=== PATIENT | male | born 1970 | race Caucasian/White ===

== ENCOUNTER 2016-09-26 19:28 | Inpatient (IN) | payer MEDICARE ==
[~2016-09-26] VITALS: Ht 188 cm; Wt 136.0 kg
[~2016-09-26 19:28] MED LIST: LITH300 PO; PANT20 PO; QUET200 PO; SERO200T PO; SERO400T PO
[2016-09-26 19:31] VITALS: BP 172/91; PULSE 89; RESP 16; TEMP 98.2; O2SAT 97
[2016-09-26] MEDS ORDERED: GABA600T PO (20:53)
[2016-09-26] MEDS ORDERED: HYDR8TAB PO (20:57)
[2016-09-26] MEDS ORDERED: LITH450T PO (20:57)
[2016-09-26] MEDS ORDERED: REST30CA PO (20:57)
[2016-09-26] MEDS ORDERED: QUET1TAB11 PO (20:57)
[2016-09-26] MEDS ORDERED: PANT20TA2 PO (20:57)
[2016-09-26] MEDS ORDERED: MORP1TAB26 PO (20:57)
--- NOTE | 2016-09-26 21:16 | PD ---
HPI Chief Complaint: Psychiatric Symptoms Time Seen by Provider: 21:08 Travel History International Travel<30 days: No Contact w/Intl Traveler<30days: No Traveled to known affect area: No History of Present Illness HPI This is a 46-year-old male with history of bipolar disorder, schizophrenia who presents with his friend and roommate voluntarily for psychiatric evaluation. For the past 5 days he has been hearing voices, feeling increasingly depressed and suicidal. He reports that the voices tell him to hurt himself and they tell him that he is worthless. He reports that today he was considering cutting himself with a knife and this prompted evaluation. He denies any toxic ingestions. He denies any drug or alcohol use. During review of systems he does mention that 2 days ago he had a sharp epigastric abdominal pain which lasted for about 2 hours and then resolved. Since then he has had some nausea and occasional vomiting, decreased appetite. He denies any recurrent abdominal pain. He denies any diarrhea, constipation, dysuria, flank pain, fevers, chills. No history of pancreatitis, gallbladder disease, gastritis. He reports that he has been taking his psychiatric medications as prescribed and he sees a psychiatrist locally, he does not recall the name. He has no other complaints at this time. PFSH Past Medical History Autoimmune Disease: No Bipolar Disorder: Yes Diminished Hearing: No Endocrine: No Gastrointestinal Disorders: No Genitourinary: No Hypertension: Yes Immune Disorder: No Implanted Vascular Access Dvce: No Musculoskeletal: Yes (HX OF LUMBAR SURGERY) Neurologic: No Psychiatric: Yes Reproductive: No Respiratory: No Schizophrenia: Yes Past Surgical History Abdominal Surgery: No Cardiac Surgery: No Ear Surgery: No Endocrine Surgery: No Eye Surgery: No Genitourinary Surgery: No Gynecologic Surgery: No Neurologic Surgery: No Oral Surgery: No Thoracic Surgery: No Other Surgery: Yes (SEE ED HISTORY AND PHYSICAL) Social History Alcohol Use: No Tobacco Use: Yes Substance Use: Yes (MARIJUANA) Allergies-Medications (Allergen,Severity, Reaction): Coded Allergies: No Known Allergies (Unverified , 09/26/16) Reported Meds & Prescriptions Reported Meds & Active Scripts Active Reported Morphine ER (Morphine Sulfate) 60 Mg Tab 60 Mg PO BID Quetiapine (Quetiapine Fumarate) 400 Mg Tab 400 Mg PO HS Hydromorphone (Hydromorphone HCl) 8 Mg Tab 8 Mg PO Q4-6H PRN Restoril (Temazepam) 30 Mg Cap 30 Mg PO HS PRN Pantoprazole (Pantoprazole Sodium) 20 Mg Tab 20 Mg PO DAILY [place] Carbonate ER ([place] Carbonate) 450 Mg Tab 450 Mg PO BID Gabapentin 600 Mg Tab 600 Mg PO Q6HR Review of Systems Except as stated in HPI: all other systems reviewed are Neg Physical Exam Narrative GENERAL: Well-developed well-nourished male in no acute distress answering questions appropriately SKIN: Warm and dry. HEAD: Atraumatic. Normocephalic. EYES: Pupils equal and round. No scleral icterus. No injection or drainage. ENT: No nasal bleeding or discharge. Mucous membranes pink and moist. NECK: Trachea midline. No JVD. CARDIOVASCULAR: Regular rate and rhythm. No murmur appreciated. RESPIRATORY: No accessory muscle use. Clear to auscultation. Breath sounds equal bilaterally. GASTROINTESTINAL: Abdomen soft, non-tender, nondistended. Hepatic and splenic margins not palpable. Negative Lacey's, no guarding. MUSCULOSKELETAL: No obvious deformities. No edema NEUROLOGICAL: Awake and alert. No obvious cranial nerve deficits. Motor grossly within normal limits. Normal speech. PSYCHIATRIC: Affect is somewhat flat, mood is somewhat depressed; insight and judgment normal. Data Data Last Documented VS Vital Signs Date Time Temp Pulse Resp B/P Pulse Ox O2 Delivery O2 Flow Rate FiO2 09/26/16 19:31 98.2 89 16 172/91 97 Room Air Orders Complete Blood Count With Diff (09/26/16 20:44) Comprehensive Metabolic Panel (09/26/16 20:44) Drug Screen, Random Urine (09/26/16 20:44) Alcohol (Ethanol) (09/26/16 20:44) Salicylates (Aspirin) (09/26/16 20:44) Tylenol (Acetaminophen) (09/26/16 20:44) Psych Screen (09/26/16 20:44) [place] (Li) (09/26/16 21:14) ^ Sitter (09/26/16 21:17) Ondansetron Inj (Zofran Inj) (09/26/16 21:30) Lipase (09/26/16 21:18) Pantoprazole Inj (Protonix Inj) (09/26/16 21:30) Sodium Chlor 0.9% 1000 Ml Inj (Ns 1000 M (09/26/16 21:18) Al-Mag Hy-Si 40-40-4 Mg/Ml Liq (Mag-Al P (09/26/16 21:30) Lidocaine 2% Viscous (Xylocaine 2% Visco (09/26/16 21:30) Potassium Chloride (Kcl) (09/26/16 23:15) Labs Laboratory Tests Test 09/26/16 09/26/16 21:00 21:40 White Blood Count 9.3 TH/MM3 Red Blood Count 5.30 MIL/MM3 Hemoglobin 14.6 GM/DL Hematocrit 42.3 % Mean Corpuscular Volume 79.8 FL Mean Corpuscular Hemoglobin 27.5 PG Mean Corpuscular Hemoglobin 34.5 % Concent Red Cell Distribution Width 15.5 % Platelet Count 239 TH/MM3 Mean Platelet Volume 7.5 FL Neutrophils (%) (Auto) 59.3 % Lymphocytes (%) (Auto) 29.8 % Monocytes (%) (Auto) 7.1 % Eosinophils (%) (Auto) 3.2 % Basophils (%) (Auto) 0.6 % Neutrophils # (Auto) 5.5 TH/MM3 Lymphocytes # (Auto) 2.8 TH/MM3 Monocytes # (Auto) 0.7 TH/MM3 Eosinophils # (Auto) 0.3 TH/MM3 Basophils # (Auto) 0.1 TH/MM3 CBC Comment DIFF FINAL Differential Comment Sodium Level 139 MEQ/L Potassium Level 3.3 MEQ/L Chloride Level 101 MEQ/L Carbon Dioxide Level 29.3 MEQ/L Anion Gap 9 MEQ/L Blood Urea Nitrogen 8 MG/DL Creatinine 0.75 MG/DL Estimat Glomerular Filtration 112 ML/MIN Rate Random Glucose 84 MG/DL Calcium Level 9.0 MG/DL Total Bilirubin 0.3 MG/DL Aspartate Amino Transf 12 U/L (AST/SGOT) Alanine Aminotransferase 27 U/L (ALT/SGPT) Alkaline Phosphatase 96 U/L Total Protein 8.2 GM/DL Albumin 3.5 GM/DL Salicylates Level 2.1 MG/DL Urine Opiates Screen NEG Acetaminophen Level LESS THAN 2.0 MCG/ML Urine Barbiturates Screen NEG Urine Amphetamines Screen NEG Urine Benzodiazepines Screen NEG Urine Cocaine Screen NEG Urine Cannabinoids Screen POS Ethyl Alcohol Level LESS THAN 3 MG/DL Lipase 62 U/L [place] Level 0.3 MEQ/L MDM Medical Decision Making Medical Screen Exam Complete: Yes Emergency Medical Condition: Yes Medical Record Reviewed: Yes Differential Diagnosis Schizophrenia, acute psychosis, substance induced mood disorder, medication noncompliance, adjustment reaction Narrative Course This is a 46-year-old male who is been having increasing depression, insomnia, auditory hallucinations, suicidal ideation the past 5 days. He notes a sharp epigastric abdominal pain 2 days ago which lasted for 2 hours and resolved. He notes nausea and vomiting since then. His abdomen is currently soft and nontender. Plan is for basic lab work, IV fluids, Zofran. He will be given a GI cocktail and Protonix. Lab work is been reviewed. Potassium mildly low at 3.3, he will be given oral potassium chloride supplementation. His lithium level was subtherapeutic. Drug screen is positive for cannabinoids. Mental health screening discussed with the patient. Psychiatric screen ordered. The patient is medically cleared for psychiatric disposition. A sitter has been ordered. Sixto Ureña Sep 26, 2016 21:16 Sixto Ureña Sep 26, 2016 21:16
[2016-09-26] MEDS ORDERED: SODIUM CHLOR 0.9% 1000 ML INJ 1,000 ML IV SCH (21:18)
[2016-09-26] MEDS ORDERED: ONDANSETRON HCL 4 MG/2 ML VIAL IV PUSH ONE (21:30)
[2016-09-26] MEDS ORDERED: PANTOPRAZOLE SODIUM 40 MG VIAL IVP ONE (21:30)
[2016-09-26] MEDS ORDERED: ALUMINUM/MAGNESIUM/SIMETH 30 ML CUP PO ONE (21:30)
[2016-09-26] MEDS ORDERED: LIDOCAINE VISCOUS 2% SOLN 15 ML UDC PO ONE (21:30)
[2016-09-26 21:34] LABS: AUTOMATED NEUTROPHIL # 5.5 TH/MM3 (1.8-7.7); BASOPHIL # 0.1 TH/MM3 (0-0.2); BASOPHIL % 0.6 % (0.0-2.0); EOSINOPHIL # 0.3 TH/MM3 (0-0.4); EOSINOPHIL % 3.2 % (0.0-4.0); HEMATOCRIT 42.3 % (39.0-51.0); HEMO FLAGS DIFF FINAL; LYMPH % 29.8 % (9.0-44.0); LYMPHOCYTE # 2.8 TH/MM3 (1.0-4.8); MEAN CELL VOLUME 79.8 FL (80.0-100.0); MEAN CORPUSCULAR HEMOGLOBIN 27.5 PG (27.0-34.0); MEAN CORPUSCULAR HGB CONC 34.5 % (32.0-36.0); MONO % 7.1 % (0.0-8.0); NEUT % 59.3 % (16.0-70.0); PLATELET COUNT 239 TH/MM3 (150-450); RED CELL DISTRIBUTION WIDTH 15.5 % (11.6-17.2); WHITE BLOOD COUNT 9.3 TH/MM3 (4.0-11.0)
[2016-09-26 21:41] LABS: AMPHETAMINE, URINE NEG (NEG); BARBITURATES, URINE NEG (NEG); COCAINE, URINE NEG (NEG)
[2016-09-26 21:50] LABS: ANION GAP 9 MEQ/L (5-15)
[2016-09-26 21:53] LABS: ALKALINE PHOSPHATASE 96 U/L (45-117); ALT (GPT) 27 U/L (12-78); AST (GOT) 12 U/L (15-37); BICARBONATE 29.3 MEQ/L (21.0-32.0); BLOOD UREA NITROGEN 8 MG/DL (7-18); CHLORIDE 101 MEQ/L (98-107); GLOMERULAR FILTRATION RATE 112 ML/MIN (>89); POTASSIUM 3.3 MEQ/L (3.5-5.1); SODIUM (NA) 139 MEQ/L (136-145); TOTAL BILIRUBIN ADULT 0.3 MG/DL (0.2-1.0)
[2016-09-26 22:38] LABS: ACETAMINOPHEN LESS THAN 2.0 MCG/ML (10.0-30.0)
[2016-09-26] MEDS ORDERED: POTASSIUM CHLORIDE 20 MEQ CONTROLLED RELEASE TAB PO ONE (23:15)
[2016-09-27] MEDS ORDERED: TEMAZEPAM 15 MG CAP PO ONE (01:00)
[2016-09-27 01:10] VITALS: BP 115/66; PULSE 66; RESP 16; O2SAT 99
[2016-09-27 06:28] VITALS: BP 131/60; PULSE 77; RESP 19; O2SAT 100
--- NOTE | 2016-09-27 10:10 | PD ---
History of Present Illness Chief Complaint: Psychiatric Symptoms Time Seen by Provider: 10:00 Travel History International Travel<30 Days: No Contact w/Intl Traveler<30days: No Known affected area: No Legal Status Legal Status: Voluntary History of Present Illness: History of Present Illness This is a 46-year-old male with history of bipolar disorder, cannabis abuse and mixed personality disorder who presents with his friend and roommate voluntarily for psychiatric evaluation. As per ed documentation which is included he reports that " for the past 5 days he has been hearing voices, feeling increasingly depressed and suicidal. He reports that the voices tell him to hurt himself and they tell him that he is worthless. He reports that today he was considering cutting himself with a knife and this prompted evaluation. He reports that he has been taking his psychiatric medications as prescribed and he sees a psychiatrist locally, he does not recall the name. His Li level is subtherapeutic at 0.3 therefore it is highly unlikely that he has been compliant with his medication. Patient presents with positive toxicology for cannabinoids but states ' that is not a drug and everyone smokes it". Patient was monitored in J pod overnight and presented no behavioral concerns and no suicidality until discharge options and plans were discussed. Patient is alert and oriented. Speech is clear and logical. He endorses auditory command type hallucinations that tell him to kill himself. he does not appear to be internally stimulated and his presentation is unusual and appears " acted" at times. he awaits for staff to be observing him and then responds and looks around. He reports feeling depressed and that " I have not eaten in 5 days or had anything to drink". he then corrects himself and states " I have only started eating here". There is no reported precipitant to increase in symptoms reported. He is unable to report who he sees at [facility] for medication. Overall he is very vague . he also asks several times " I'm I going to be discharged, can I go?". It was determined that he was to be discharged and shortly after that he was observed trying to tie his sheet around his neck in front of staff. He also was attempting to bite his tongue while demanding to be discharged. Patient is clearly manipulative and I don't believe that he is experiencing the degree of psychosis that he is portraying. Clearly manipulative behavior but nonetheless he will act out in a way as to obtain his intended purpose. Out of abundance of caution I will recommend inpatient psychiatric observation. As per record review he has presented similar behaviors during previous admissions to [facility]. PFSH Past Medical History Autoimmune Disease: No Bipolar Disorder: Yes Diminished Hearing: No Endocrine: No Gastrointestinal Disorders: No Genitourinary: No Hypertension: Yes Immune Disorder: No Implanted Vascular Access Dvce: No Musculoskeletal: Yes (HX OF LUMBAR SURGERY) Neurologic: No Psychiatric: Yes Reproductive: No Respiratory: No Schizophrenia: Yes Past Surgical History Abdominal Surgery: No Cardiac Surgery: No Ear Surgery: No Endocrine Surgery: No Eye Surgery: No Genitourinary Surgery: No Gynecologic Surgery: No Neurologic Surgery: No Oral Surgery: No Thoracic Surgery: No Other Surgery: Yes (SEE ED HISTORY AND PHYSICAL) Psychiatric History Psychiatric History Hx Psychiatric Treatment: HX OF BI-POLAR DISORDER AND SCHIZOPHRENIA History of Inpatient Treatment: Yes (Last admission at [facility] on Apr 2016 under the care of Dr White. ) Guns or firearms in home: No Social History Born in [place]. Div x 2. Has 2 adult children. On disability. Hx Alcohol Use: No Hx Tobacco Use: Yes Hx Substance Use: Yes (MARIJUANA) Substance Use Type: Marijuana (positive toxicology) Hx of Substance Use Treatment: No Family Psychiatric History Reports positive for schizophrenia Allergies-Medications (Allergen,Severity, Reaction): Coded Allergies: No Known Allergies (Unverified , 09/26/16) Reported Meds & Prescriptions Reported Meds & Active Scripts Active Reported Morphine ER (Morphine Sulfate) 60 Mg Tab 60 Mg PO BID Quetiapine (Quetiapine Fumarate) 400 Mg Tab 400 Mg PO HS Hydromorphone (Hydromorphone HCl) 8 Mg Tab 8 Mg PO Q4-6H PRN Restoril (Temazepam) 30 Mg Cap 30 Mg PO HS PRN Pantoprazole (Pantoprazole Sodium) 20 Mg Tab 20 Mg PO DAILY [place] Carbonate ER ([place] Carbonate) 450 Mg Tab 450 Mg PO BID Gabapentin 600 Mg Tab 600 Mg PO Q6HR Review of Systems Constitutional: COMPLAINS OF: Change in appetite Endocrine: DENIES: Heat/cold intolerance, Polydipsia, Polyuria, Polyphagia Eyes: DENIES: Blurred vision, Diplopia, Eye inflammation, Eye pain, Vision loss , Photosensitivity, Double Vision Ears, nose, mouth, throat: DENIES: Tinnitus, Hearing loss, Vertigo, Nasal discharge, Oral lesions, Throat pain, Hoarseness, Ear Pain, Running Nose, Epistaxis, Sinus Pain, Toothache, Odynophagia Respiratory: DENIES: Apneas, Cough, Snoring, Wheezing, Hemoptysis, Sputum production, Shortness of breath Cardiovascular: DENIES: Chest pain, Palpitations, Syncope, Dyspnea on Exertion , PND, Lower Extremity Edema, Orthopnea, Claudication Gastrointestinal: DENIES: Abdominal pain, Black stools, Bloody stools, Constipation, Diarrhea, Nausea, Vomiting, Difficulty Swallowing, Anorexia Genitourinary: DENIES: Sexual dysfunction, Urinary frequency, Urinary incontinence, Urgency, Hematuria, Dysuria, Nocturia, Penile Discharge, Testicular Pain, Testicular Swelling Integumentary: DENIES: Abnormal pigmentation, Nail changes, Pruritus, Rash Hematologic/lymphatic: DENIES: Bruising, Lymphadenopathy Immunologic/allergic: DENIES: Eczema, Urticaria Psychiatric: COMPLAINS OF: Suicidal Ideation Exam Alert: Yes Byars: Person (ox4) Mood: Agitated, Depressed Affect: Other (variable) Speech: Clear, Logical Eye Contact: Normal Memory Intact: Comment (poor historian) Hallucinations: Auditory (reports command type but does not appear to be responding to suich) Delusions: No Suicidal: Ideation (gestures. Plans on hanging himself) Insight/Judgement poor. poor MDM Medical Decision Making Medical Record Reviewed: Yes Assessment/Plan 46 year old w hx of bipolar disorder, mixed personality disorder and cannabis abuse who presents under a voluntary status for evaluation of suicidal thoughts. Reports command type hallucinations that tell him to hang himself. Patient appears to be exaggerating his symptoms att this time and upon discussion of discharge he attempted to place a sheet around his neck, trying to bite his tongue and overall making every effort to get admitted despite demanding to be discharged as well. Out of abundance of caution he will be admitted for observation and safety. Orders Complete Blood Count With Diff (09/26/16 20:44) Comprehensive Metabolic Panel (09/26/16 20:44) Drug Screen, Random Urine (09/26/16 20:44) Alcohol (Ethanol) (09/26/16 20:44) Salicylates (Aspirin) (09/26/16 20:44) Tylenol (Acetaminophen) (09/26/16 20:44) Psych Screen (09/26/16 20:44) [place] (Li) (09/26/16 21:14) ^ Sitter (09/26/16 21:17) Ondansetron Inj (Zofran Inj) (09/26/16 21:30) Lipase (09/26/16 21:18) Pantoprazole Inj (Protonix Inj) (09/26/16 21:30) Sodium Chlor 0.9% 1000 Ml Inj (Ns 1000 M (09/26/16 21:18) Al-Mag Hy-Si 40-40-4 Mg/Ml Liq (Mag-Al P (09/26/16 21:30) Lidocaine 2% Viscous (Xylocaine 2% Visco (09/26/16 21:30) Potassium Chloride (Kcl) (09/26/16 23:15) Temazepam (Restoril) (09/27/16 01:00) Diet Regular Basic (09/27/16 Breakfast) Results Vital Signs Date Time Temp Pulse Resp B/P Pulse Ox O2 Delivery O2 Flow Rate FiO2 09/27/16 06:28 77 19 131/60 100 Room Air 09/27/16 01:10 66 16 115/66 99 Room Air 09/26/16 19:31 98.2 89 16 172/91 97 Room Air Laboratory Tests Test 09/26/16 09/26/16 21:00 21:40 White Blood Count 9.3 Red Blood Count 5.30 Hemoglobin 14.6 Hematocrit 42.3 Mean Corpuscular Volume 79.8 Mean Corpuscular Hemoglobin 27.5 Mean Corpuscular Hemoglobin 34.5 Concent Red Cell Distribution Width 15.5 Platelet Count 239 Mean Platelet Volume 7.5 Neutrophils (%) (Auto) 59.3 Lymphocytes (%) (Auto) 29.8 Monocytes (%) (Auto) 7.1 Eosinophils (%) (Auto) 3.2 Basophils (%) (Auto) 0.6 Neutrophils # (Auto) 5.5 Lymphocytes # (Auto) 2.8 Monocytes # (Auto) 0.7 Eosinophils # (Auto) 0.3 Basophils # (Auto) 0.1 CBC Comment DIFF FINAL Differential Comment Sodium Level 139 Potassium Level 3.3 Chloride Level 101 Carbon Dioxide Level 29.3 Anion Gap 9 Blood Urea Nitrogen 8 Creatinine 0.75 Estimat Glomerular Filtration 112 Rate Random Glucose 84 Calcium Level 9.0 Total Bilirubin 0.3 Aspartate Amino Transf 12 (AST/SGOT) Alanine Aminotransferase 27 (ALT/SGPT) Alkaline Phosphatase 96 Total Protein 8.2 Albumin 3.5 Salicylates Level 2.1 Urine Opiates Screen NEG Acetaminophen Level LESS THAN 2.0 Urine Barbiturates Screen NEG Urine Amphetamines Screen NEG Urine Benzodiazepines Screen NEG Urine Cocaine Screen NEG Urine Cannabinoids Screen POS Ethyl Alcohol Level LESS THAN 3 Lipase 62 [place] Level 0.3 Diagnosis Primary Impression: Mixed personality disorder Additional Impressions: Cannabis abuse Bipolar disorder Admitting Information Admitting Physician Requests: Admit (Dr. Bernard) Problem Qualifiers Additional Impressions: Bipolar disorder Qualified Code: F31.61 - Bipolar disorder, current episode mixed, mild Christina Allen Sep 27, 2016 10:10
[2016-09-27] MEDS ORDERED: HALOPERIDOL 0.5 MG TAB PO ONE (10:15)
--- NOTE | 2016-09-27 10:22 | PD ---
Physical Exam Narrative I was asked by the psych nurse in J pod to order a pain medication for the patient currently in J pod. This is a 46yo M with chronic lower back pain that is suppose to be on lortab 10mg at home. Pt had lower midline lumbar scar from previous surgery and denies any new trauma, or weakness or numbness. No erythema, mass or signs of infection in lower back. I ordered 1 dose of lortab 10mg. Data Data Last Documented VS Vital Signs Date Time Temp Pulse Resp B/P Pulse Ox O2 Delivery O2 Flow Rate FiO2 09/27/16 06:28 77 19 131/60 100 Room Air 09/26/16 19:31 98.2 Orders Complete Blood Count With Diff (09/26/16 20:44) Comprehensive Metabolic Panel (09/26/16 20:44) Drug Screen, Random Urine (09/26/16 20:44) Alcohol (Ethanol) (09/26/16 20:44) Salicylates (Aspirin) (09/26/16 20:44) Tylenol (Acetaminophen) (09/26/16 20:44) Psych Screen (09/26/16 20:44) [place] (Li) (09/26/16 21:14) ^ Sitter (09/26/16 21:17) Ondansetron Inj (Zofran Inj) (09/26/16 21:30) Lipase (09/26/16 21:18) Pantoprazole Inj (Protonix Inj) (09/26/16 21:30) Sodium Chlor 0.9% 1000 Ml Inj (Ns 1000 M (09/26/16 21:18) Al-Mag Hy-Si 40-40-4 Mg/Ml Liq (Mag-Al P (09/26/16 21:30) Lidocaine 2% Viscous (Xylocaine 2% Visco (09/26/16 21:30) Potassium Chloride (Kcl) (09/26/16 23:15) Temazepam (Restoril) (09/27/16 01:00) Diet Regular Basic (09/27/16 Breakfast) Haloperidol (Haldol) (09/27/16 10:15) Labs Laboratory Tests Test 09/26/16 09/26/16 21:00 21:40 White Blood Count 9.3 TH/MM3 Red Blood Count 5.30 MIL/MM3 Hemoglobin 14.6 GM/DL Hematocrit 42.3 % Mean Corpuscular Volume 79.8 FL Mean Corpuscular Hemoglobin 27.5 PG Mean Corpuscular Hemoglobin 34.5 % Concent Red Cell Distribution Width 15.5 % Platelet Count 239 TH/MM3 Mean Platelet Volume 7.5 FL Neutrophils (%) (Auto) 59.3 % Lymphocytes (%) (Auto) 29.8 % Monocytes (%) (Auto) 7.1 % Eosinophils (%) (Auto) 3.2 % Basophils (%) (Auto) 0.6 % Neutrophils # (Auto) 5.5 TH/MM3 Lymphocytes # (Auto) 2.8 TH/MM3 Monocytes # (Auto) 0.7 TH/MM3 Eosinophils # (Auto) 0.3 TH/MM3 Basophils # (Auto) 0.1 TH/MM3 CBC Comment DIFF FINAL Differential Comment Sodium Level 139 MEQ/L Potassium Level 3.3 MEQ/L Chloride Level 101 MEQ/L Carbon Dioxide Level 29.3 MEQ/L Anion Gap 9 MEQ/L Blood Urea Nitrogen 8 MG/DL Creatinine 0.75 MG/DL Estimat Glomerular Filtration 112 ML/MIN Rate Random Glucose 84 MG/DL Calcium Level 9.0 MG/DL Total Bilirubin 0.3 MG/DL Aspartate Amino Transf 12 U/L (AST/SGOT) Alanine Aminotransferase 27 U/L (ALT/SGPT) Alkaline Phosphatase 96 U/L Total Protein 8.2 GM/DL Albumin 3.5 GM/DL Salicylates Level 2.1 MG/DL Urine Opiates Screen NEG Acetaminophen Level LESS THAN 2.0 MCG/ML Urine Barbiturates Screen NEG Urine Amphetamines Screen NEG Urine Benzodiazepines Screen NEG Urine Cocaine Screen NEG Urine Cannabinoids Screen POS Ethyl Alcohol Level LESS THAN 3 MG/DL Lipase 62 U/L [place] Level 0.3 MEQ/L MDM Supervised Visit with SHARON: Xiomara Johnson DO Sep 27, 2016 10:22
[2016-09-27] MEDS ORDERED: ACETAMINOPHEN/HYDROcodone 325 MG/10 MG TAB PO ONE (10:30)
[2016-09-27] MEDS ORDERED: HALOPERIDOL LACTATE 5 MG/ML AMP IM ONE (12:00)
[2016-09-27] MEDS: diphenhydrAMINE HCL 50 MG/ML VIAL IM PRN ×2 (12:27→17:35)
[2016-09-27] MEDS ORDERED: ACETAMINOPHEN 325 MG TAB PO PRN (12:45)
[2016-09-27] MEDS ORDERED: MAGNESIUM HYDROXIDE SUSP 30 ML CUP PO PRN (12:45)
[2016-09-27] MEDS ORDERED: ALUMINUM/MAGNESIUM/SIMETH 30 ML CUP PO PRN (12:45)
[2016-09-27 13:15] VITALS: BP 127/85; PULSE 75; RESP 18; TEMP 97.1; O2SAT 99
--- NOTE | 2016-09-27 18:00 | PD.CONS ---
HPI [facility] Consult Requested By Dr. Bernard for management of chronic back pain Reason for Consult Chronic pain management Primary Care Physician No Primary Care Physician Diagnoses: History of Present Illness Patient is a 46-year-old male who states that he since he arrived here 2 weeks ago from [place] has been hearing voices with suicidal ideations. Evaluated in the ER and admitted under psychiatry services for management. Patient states history of chronic back pain had surgery for this in 2016 . he still ambulatory independently. Patient states he is followed by a pain management doctor in [place] and is on several pain medications namely Dilaudid, morphine sulfate and gabapentin. Patient states that his medic his medication bottles were here but was taken home by his uncle. When reviewed with him patient states that he has been off morphine 60 mg twice a day for years. Call ER and they were also not able to confirm if somebody saw the actual bottles. He states that he takes clonidine 0.1 mg to 0.2 mg twice a day however this was not in the medication list. . I tried to call [facility] pharmacy in [place] but they're close right now. Patient appears comfortable but appears anxious to be started back on all his narcotics and explained to him that I have to confirm this He states he doesn't have any problem with constipation being on all these pain medications. Doesn't require any stool softeners. Review of Systems Constitutional: DENIES: Diaphoretic episodes, Fatigue, Fever, Weight gain, Weight loss, Chills, Dizziness, Change in appetite, Night Sweats Endocrine: DENIES: Heat/cold intolerance, Polydipsia, Polyuria, Polyphagia Eyes: DENIES: Blurred vision, Diplopia, Eye inflammation, Eye pain, Vision loss , Photosensitivity, Double Vision Ears, nose, mouth, throat: DENIES: Tinnitus, Hearing loss, Vertigo, Nasal discharge, Oral lesions, Throat pain, Hoarseness, Ear Pain, Running Nose, Epistaxis, Sinus Pain, Toothache, Odynophagia Respiratory: DENIES: Apneas, Cough, Snoring, Wheezing, Hemoptysis, Sputum production, Shortness of breath Gastrointestinal: COMPLAINS OF: Abdominal pain (describe occasional reflux) Genitourinary: DENIES: Sexual dysfunction, Urinary frequency, Urinary incontinence, Urgency, Hematuria, Dysuria, Nocturia, Penile Discharge, Testicular Pain, Testicular Swelling Musculoskeletal: COMPLAINS OF: Back pain Integumentary: DENIES: Abnormal pigmentation, Nail changes, Pruritus, Rash Hematologic/lymphatic: DENIES: Bruising, Lymphadenopathy Immunologic/allergic: DENIES: Eczema, Urticaria Neurologic: DENIES: Abnormal gait, Headache, Localized weakness, Paresthesias, Seizures, Speech Problems, Tremor, Poor Balance Psychiatric: COMPLAINS OF: Hallucinations Past Family Social History Allergies: Coded Allergies: No Known Allergies (Unverified , 09/26/16) Past Medical History Chronic pain GERD Hypertension Schizophrenia Past Surgical History Back surgery in 2016 Reported Medications Reportedly hydromorphone 8 mg 5 times a day Restoril 30 mg at bedtime Trazodone 150 mg at bedtime Protonix 40 mg daily Gabapentin 600 mg 3 times a day Clonidine 0.2 mg day Melfa twice a day Active Ordered Medications See EMR Family History Noncontributory Social History Smokes 1 pack per day Denies alcohol use Occasional marijuana use Physical Exam Vital Signs Vital Signs Date Time Temp Pulse Resp B/P Pulse Ox O2 Delivery O2 Flow Rate FiO2 09/27/16 13:15 97.1 75 18 127/85 99 09/27/16 06:28 77 19 131/60 100 Room Air 09/27/16 01:10 66 16 115/66 99 Room Air 09/26/16 19:31 98.2 89 16 172/91 97 Room Air Physical Exam GENERAL: T awake alert oriented 3, in no apparent distress. SKIN: No rashes, ecchymoses or lesions. Cool and dry. HEAD: Atraumatic. Normocephalic. No temporal or scalp tenderness. EYES: Pupils equal round and reactive. Extraocular motions intact. No scleral icterus. No injection or drainage. ENT: Nose without bleeding, purulent drainage or septal hematoma. Throat without erythema, tonsillar hypertrophy or exudate. Uvula midline. Airway patent. NECK: Supple, nontender, no meningeal signs. CARDIOVASCULAR: Regular rate and rhythm without murmurs, gallops, or rubs. RESPIRATORY: Clear to auscultation. Breath sounds equal bilaterally. No wheezes , rales, or rhonchi. GASTROINTESTINAL: Abdomen soft, non-tender, nondistended. . No guarding. MUSCULOSKELETAL: Extremities without clubbing, cyanosis, or edema. No joint tenderness, effusion, or edema noted. No calf tenderness. Negative Homans sign bilaterally. NEUROLOGICAL: Awake and alert. Cranial nerves II through XII intact. Motor and sensory grossly within normal limits. Five out of 5 muscle strength in all muscle groups. Normal speech. Gait steady Laboratory Laboratory Tests Test 09/26/16 09/26/16 21:00 21:40 White Blood Count 9.3 Red Blood Count 5.30 Hemoglobin 14.6 Hematocrit 42.3 Mean Corpuscular Volume 79.8 Mean Corpuscular Hemoglobin 27.5 Mean Corpuscular Hemoglobin 34.5 Concent Red Cell Distribution Width 15.5 Platelet Count 239 Mean Platelet Volume 7.5 Neutrophils (%) (Auto) 59.3 Lymphocytes (%) (Auto) 29.8 Monocytes (%) (Auto) 7.1 Eosinophils (%) (Auto) 3.2 Basophils (%) (Auto) 0.6 Neutrophils # (Auto) 5.5 Lymphocytes # (Auto) 2.8 Monocytes # (Auto) 0.7 Eosinophils # (Auto) 0.3 Basophils # (Auto) 0.1 CBC Comment DIFF FINAL Differential Comment Sodium Level 139 Potassium Level 3.3 Chloride Level 101 Carbon Dioxide Level 29.3 Anion Gap 9 Blood Urea Nitrogen 8 Creatinine 0.75 Estimat Glomerular Filtration 112 Rate Random Glucose 84 Calcium Level 9.0 Total Bilirubin 0.3 Aspartate Amino Transf 12 (AST/SGOT) Alanine Aminotransferase 27 (ALT/SGPT) Alkaline Phosphatase 96 Total Protein 8.2 Albumin 3.5 Salicylates Level 2.1 Urine Opiates Screen NEG Acetaminophen Level LESS THAN 2.0 Urine Barbiturates Screen NEG Urine Amphetamines Screen NEG Urine Benzodiazepines Screen NEG Urine Cocaine Screen NEG Urine Cannabinoids Screen POS Ethyl Alcohol Level LESS THAN 3 Lipase 62 Melfa Level 0.3 Result Diagram: 09/26/16209909/26/162099 Assessment and Plan Assessment and Plan 46-year-old male admitted under psychiatry services. [facility] hospitalists consulted for Chronic back pain on chronic narcotics we'll start patient on Lortab 7.5/500 one tab every 6 hours when necessary for back pain Continue on gabapentin 600 mg 3 times a day Family to bring in his bottles History of hypertension per patient We'll start patient on clonidine 0.1 mg twice a day for now History of GERD Continue Protonix 40 mg daily Hypokalemia. Patient received by mouth potassium in the ER. Will recheck in a.m. Marijuana use. Patient counseled Encourage increase ambulation. We will follow patient with you Lizzette Christiansen MD Sep 27, 2016 18:00 Lizzette Christiansen MD Sep 27, 2016 18:00 Lizzette Christiansen MD Sep 27, 2016 18:00
[2016-09-27] MEDS: GABAPENTIN 300 MG CAP PO SCH (18:59)
[2016-09-27] MEDS: ACETAMINOPHEN/HYDROcodone 325 MG/7.5 MG TAB PO PRN (19:00)
[2016-09-27 19:52] VITALS: BP 141/80; PULSE 81; RESP 18; TEMP 96; O2SAT 95
[2016-09-27] MEDS ORDERED: cloNIDine HCL 0.2 MG TAB PO SCH (21:00)
[2016-09-27] MEDS: cloNIDine HCL 0.1 MG TAB PO SCH (21:21)
[2016-09-28] MEDS: ACETAMINOPHEN/HYDROcodone 325 MG/7.5 MG TAB PO PRN ×2 (00:10→09:36)
[2016-09-28] MEDS: diphenhydrAMINE HCL 50 MG/ML VIAL IM PRN (03:10)
[2016-09-28 06:24] VITALS: BP 137/97; PULSE 74; RESP 18; TEMP 97
[2016-09-28] MEDS ORDERED: ACETAMINOPHEN 325 MG TAB PO PRN (08:15)
[2016-09-28] MEDS ORDERED: MAGNESIUM HYDROXIDE SUSP 30 ML CUP PO PRN (08:15)
[2016-09-28] MEDS ORDERED: ALUMINUM/MAGNESIUM/SIMETH 30 ML CUP PO PRN (08:15)
--- NOTE | 2016-09-28 08:37 | HHI.HP ---
Provisional Diagnosis Admission Date Sep 27, 2016 at 12:38 [place] I. 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 Express and informed consent means consent voluntarily given in writing, by a competent person, after sufficient explanation and disclosure of the subject matter involved to enable the person to make a knowing and willful decision without any element of force, fraud, deceit, duress, or other form of constraint or coercion. This person is 18 years of age or older, is not now known to be incompetent to consent to treatment with a guardian advocate, and does not have a health care surrogate or proxy currently making medical treatment decisions. I have found this person to be one of the following: [x] Competent to provide express and informed consent, as defined above, for voluntary admission to this facility and is competent to provide express and informed consent for treatment. He/she has the consistent capacity to make well reasoned, willful, and knowing decisions concerning his or her medical or mental health treatment. The person fully and consistently understands the purpose of the admission for examination/placement and is fully capable of personally exercising all rights assured under [place] Incompetent to provide express and informed consent to voluntary admission, and this is incompetent to provide express and informed consent to treatment. The person must be transferred to involuntary status and a petition for a guardian advocate filed with the Circuit Court. [] Refusing to provide express and informed consent to voluntary admission but is competent to provide express and informed consent for treatment. The person must be discharged or transferred to involuntary status. Form shall be completed within 24 hours of a person's arrival at the receiving facility and filed in the clinical record of each person: 1. Admitted on a voluntary basis 2. Permitted to provide express and informed consent to his/her own treatment 3. Allowed to transfer from involuntary to voluntary status 4. Prior to permitting a person to consent to his or her own treatment after having been previously found incompetent to consent to treatment. History of Present Illness Capacity: Has Capacity HPI Patient is a 46-year-old male well-known to us from multiple prior contacts officially hospitalized here 04/29/16 through 05/02/60 visit [id number] at that time urine toxicology positive for marijuana was discharged with follow- up with Abel Balderrama. He appeared later that day in the [facility] emergency department visit [id number] continue positive for marijuana at that time was transferred to the [facility]. Patient returns to the hospital voluntarily stating increased depression auditory hallucinations suicidal ideation. Patient given Haldol on 09/27. Her the review of prior hospitalizations or showing a marked tendency towards manipulation and [place] II cluster B personality disorder behaviors. Patient seen today on 2699 with nurse Arabella patient is alert oriented calm pleasant with me now denying voices or visions, denying suicidality homicidality. His urine toxicology drawn on 09/26 remains positive for marijuana, he states has not used any recently. He says he lives with his uncle is a good relationship. He states is been followed through [facility] outpatient that he has appointment with him this week, that he has sufficient supply of his prescribed medication by [facility] last until then. Patient is here voluntarily. At this time he does not meet criteria for either involuntary hospitalization under the [place] act or continue voluntary hospitalization. He does have appropriate mental health follow-up in an appropriate timeframe, does have sufficient medication. Thus we'll allow patient to be discharged to himself today to follow-up this week at [facility] Review of Systems Except as stated in HPI: all other systems reviewed are Neg Past Psych History Psychological trauma history Unknown at this time Violence risk - others (6 mos) Low Violence risk - self (6 mos) Low Substance Abuse History Drugs/Alcohol past 12 months Patient chronic marijuana user Past Family Social History Coded Allergies: No Known Allergies (Unverified , 09/26/16) Past Medical History Patient medically cleared ED Reported Medications Morphine ER 60 Mg Tab60 Mg PO BID Ref 0 09/26/16 Quetiapine 400 Mg [id number] Mg PO HS #30 TAB Ref 0 09/26/16 Hydromorphone 8 Mg Tab8 Mg PO Q4-6H PRN (Pain Management) Ref 0 09/26/16 Temazepam (Restoril)30 Mg Cap30 Mg PO HS PRN (INSOMNIA) #30 CAP Ref 0 09/26/16 Pantoprazole 20 Mg Tab20 Mg PO DAILY #30 TAB Ref 0 09/26/16 [place] Carbonate ER 450 Mg [id number] Mg PO BID Ref 0 09/26/16 Gabapentin 600 Mg [id number] Mg PO Q6HR #90 TAB Ref 0 09/26/16 Current Medications Medications (Trade) Dose Ordered Sig/Alex Route Start Time Stop Time Status Last Admin (Benadryl Inj) 50 mg Q6H PRN IM 09/27/16 12:00 09/28/16 03:10 (Tylenol) 650 mg Q4H PRN PO 09/27/16 12:45 (Milk Of Magnesia Liq) 30 ml DAILY PRN PO 09/27/16 12:45 (Mag-Al Plus Susp Liq) 30 ml Q6H PRN PO 09/27/16 12:45 ([place] 7.5-325 Mg) 1 tab Q6H PRN PO 09/27/16 18:15 09/28/16 00:10 (Neurontin) 600 mg TID PO 09/27/16 18:15 09/27/16 18:59 (Catapres) 0.1 mg Q12HR PO 09/27/16 21:00 09/27/16 21:21 Family History Patient lives with uncle unknown if history mental illness Social History Patient lives with uncle long history marijuana abuse Patient's Strengths (min. 2) Patient verbal irritable [facility] care Physical Exam Patient seen screened in ED exam reviewed and agreed with vital signs blood pressure 137/97 pulse 74 respirations 18 Vital Signs Vital Signs Date Time Temp Pulse Resp B/P Pulse Ox O2 Delivery O2 Flow Rate FiO2 09/28/16 06:24 97.0 74 18 137/97 09/27/16 19:52 95 09/27/16 06:28 Room Air Lab Results Urine toxicology positive for marijuana Mental Status Examination Alert oriented tall stockily built male calm cooperative with me with good eye contact Appearance Clean neatly Speech: Unremarkable Orientation: x3 Memory: Unremarkable Thought Process: Logical, Linear Thought Content: Unremarkable Hallucination Type: None Attention and Concentration: Other (fair) Suicidal Ideation: No Previous Suicide Attempts: No (denies) Homicidal Ideation: No Previous Homicide Attempts: No Insight: Poor Judgement: Poor Affect: Other (good range and intensity) Mood: Euthymic (to somewhat restricted) Motor Activity: Normal gait Assessment & Plan Problem List: (1) Cannabis abuse ICD Code: F12.10 (2) Mixed personality disorder ICD Code: F60.89 Assessment & Plan Estimated LOS: days at this time patient does not meet criteria for acute inpatient psychiatric hospitalization, he denies suicidality homicidality voices or visions alcohol use. He states he has not used marijuana for a significant period of time though his urine toxicology is positive. He states he has sufficient prescribed medicine [employer] [facility] and that his appointment there this week. Thus patient be discharged today no Rx by me though follow through with [employer] act this week, may continue use his prescribed medications at home Discharge Planning See above Request HC Surrog/Guard Advoc?: No Bandar Bernard MD Sep 28, 2016 08:37
--- NOTE | 2016-09-28 08:43 | HHI.DS ---
Psychiatry Discharge Summary Inpatient Psychiatric care?: Yes Advance Directive: No Reason Not Provided: refused Mental Health AdvanceDirective: No Health Care Proxy: No Admission Admission Date Sep 27, 2016 at 12:38 Admission Diagnosis: (1) Mixed personality disorder ICD Code: F60.89 (2) Cannabis abuse ICD Code: F12.10 Brief History Patient is a 46-year-old male well-known to us from multiple prior contacts officially hospitalized here 04/29/16 through 05/02/60 visit [id number] at that time urine toxicology positive for marijuana was discharged with follow- up with Abel Balderrama. He appeared later that day in the [facility] emergency department visit [phone] continue positive for marijuana at that time was transferred to the [facility]. Patient returns to the hospital voluntarily stating increased depression auditory hallucinations suicidal ideation. Patient given Haldol on 09/27. Her the review of prior hospitalizations or showing a marked tendency towards manipulation and [place] II cluster B personality disorder behaviors. Patient seen today on 2699 with nurse Arabella patient is alert oriented calm pleasant with me now denying voices or visions, denying suicidality homicidality. His urine toxicology drawn on 09/26 remains positive for marijuana, he states has not used any recently. He says he lives with his uncle is a good relationship. He states is been followed through [facility] outpatient that he has appointment with him this week, that he has [facility] until then. Patient is here voluntarily. At this time he does not meet criteria for either involuntary hospitalization under the [place] act or continue voluntary hospitalization. He does have appropriate mental health follow-up in an appropriate timeframe, does have sufficient medication. Thus we'll allow patient to be discharged to himself today to follow-up this week at [facility] Tobacco Use In Past 30 Days: 5 or More Cigarettes/Day Alcohol Use: Never Hospital Course See above note dictated under brief history, patient to be discharged as dictated above Results Blood Pressure 137 / 97 Vital Signs Date Time Temp Pulse Resp B/P Pulse Ox O2 Delivery O2 Flow Rate FiO2 09/28/16 06:24 97.0 74 18 137/97 09/27/16 19:52 95 09/27/16 06:28 Room Air Laboratory Tests Test 09/26/16 09/26/16 21:00 21:40 Mean Corpuscular Volume 79.8 FL (80.0-100.0) Potassium Level 3.3 MEQ/L (3.5-5.1) Aspartate Amino Transf 12 U/L (15-37) (AST/SGOT) Salicylates Level 2.1 MG/DL (2.8-20.0) Acetaminophen Level LESS THAN 2.0 MCG/ML (10.0-30.0) Urine Cannabinoids Screen POS (NEG) Lipase 62 U/L (73-393) [place] Level 0.3 MEQ/L (0.5-1.5) Laboratory Results Test 09/26/16 21:40 [place] Level 0.3 MEQ/L (0.5-1.5) Summary of Procedures None done Pending results at discharge: No Medications # of Antipsychotic meds at D/C: 0 Approp Antipsych med options 1 - Minimum of three failed multiple trials of monotherapy. 2 - Documented plan to taper to monotherapy due to previous use of multiple meds OR cross-taper in progress at D/C. 3 - Documentation of augmentation of Clozapine. 4 - Justification other than those listed in allowable values 1-3, document here : Discharge Discharge Date: Sep 28, 2016 Discharge Diagnosis: (1) Mixed personality disorder Diagnosis: Principal ICD Code: F60.89 (2) Cannabis abuse Diagnosis: Secondary ICD Code: F12.10 Mental Status Exam at Disch Alert oriented call stockily built male, normal active, patient mood euthymic to somewhat restricted affect show slight decrease range of motion intensity, speech overall goal oriented mildly tangential, no auditory or visual hallucinations noted no delusions noted insight and judgment poor cognition grossly intact Pt Condition on Discharge: Stable Discharge Disposition: Discharge Home Discharge Instructions Diet Instructions: As Tolerated, No Restrictions Activities you can perform: Regular-No Restrictions Scheduled Appointment: [facility] (may continue on schedule medications at home, follow-up appointment this week) Discharge Time > 30 minutes Discharge/Advance Care Plan Health Problems: (1) Cannabis abuse (2) Mixed personality disorder Goals to promote your health * To prevent worsening of your condition and complications * To maintain your health at the optimal level Directions to meet your goals Take your medications as prescribed Follow your dietary instruction Follow activity as directed Keep your appointments as scheduled Take your immunizations and boosters as scheduled If your symptoms worsen call your PCP, if no PCP go to Urgent Care Center or Emergency Room For 13/04 questions related to your inpatient stay or results of tests pending at discharge, please contact Dr. Bandar Bernard at Smoking is Dangerous to Your Health. Avoid second hand smoking Bandar Bernard MD Sep 28, 2016 08:43
[2016-09-28] MEDS: GABAPENTIN 300 MG CAP PO SCH (09:33)
[2016-09-28] MEDS: cloNIDine HCL 0.1 MG TAB PO SCH (09:33)
[2016-09-28] MEDS ORDERED: QUET1TAB11 PO (10:33)
== END 2016-09-28 13:10 | disposition home or self-care (01) | DRG 883 ==
LOC: NEPA 19:28 → NEDA 09-27 12:38 → H270 09-27 13:15
PROVIDERS: ADMIT Psychiatry & Neurology Psychiatry; ATTEND Psychiatry & Neurology Psychiatry
DX: F60.89 Other specific personality disorders (principal); R45.851 Suicidal ideations; R44.0 Auditory hallucinations; F12.10 Cannabis abuse, uncomplicated; I10 Essential (primary) hypertension; G47.00 Insomnia, unspecified; G89.29 Other chronic pain; M54.5 Low back pain; K21.9 Gastro-esophageal reflux disease without esophagitis; F17.210 Nicotine dependence, cigarettes, uncomplicated; E87.6 Hypokalemia
CPT/HCPCS: 80053; 80178; 80307; 80320; 80329; 83690; 85025; 96361; 96372; 96374; 96375; C9113; G0480; G0481; J1200; J1630; J2405; J7030

== ENCOUNTER 2017-03-14 19:36 | Inpatient (IN) | payer MEDICARE ==
[~2017-03-14] VITALS: Ht 190.5 cm; Wt 140.0 kg
[~2017-03-14 19:36] MED LIST changes: +GABA600T PO; +HYDR8TAB PO; -LITH300 PO; +LITH450T PO; +MORP1TAB26 PO; -PANT20 PO; +PANT20TA2 PO; +QUET1TAB11 PO; -QUET200 PO; +REST30CA PO; -SERO200T PO; -SERO400T PO
[2017-03-14 19:37] VITALS: BP 173/106; PULSE 110; RESP 20; TEMP 99.3; O2SAT 97
[2017-03-14] MEDS ORDERED: QUET1TAB11 PO (19:44)
[2017-03-14] MEDS ORDERED: MORPHINE SULFATE 8 MG/ML INJ IV PUSH ONE (21:00)
[2017-03-14] MEDS ORDERED: SODIUM CHLOR 0.9% 1000 ML INJ 1,000 ML IV ONE (21:00)
[2017-03-14] MEDS ORDERED: ONDANSETRON HCL 4 MG/2 ML VIAL IV PUSH ONE (21:00)
[2017-03-14] MEDS ORDERED: LORazepam 2 MG/ML VIAL IV PUSH ONE (21:00)
--- NOTE | 2017-03-14 21:00 | PD ---
HPI Chief Complaint: Abdominal Pain Time Seen by Provider: 20:32 Travel History International Travel<30 days: No Contact w/Intl Traveler<30days: No Traveled to known affect area: No History of Present Illness HPI This is a 47-year-old male who presents the emergency department with 2 days of right upper quadrant abdominal pain, constant, moderate severity, radiating to the back, associated with several episodes of vomiting and a subjective fever. He says he's never had pain like this before. He denies any diarrhea or dysuria. He's never had surgery on his abdomen before. He said he took some morphine which he takes at home normally for his low back but that didn't help. PFSH Past Medical History Autoimmune Disease: No Bipolar Disorder: Yes Diminished Hearing: No Endocrine: No Gastrointestinal Disorders: No Genitourinary: No Hypertension: Yes Immune Disorder: No Implanted Vascular Access Dvce: No Musculoskeletal: Yes (HX OF LUMBAR SURGERY) Neurologic: No Psychiatric: Yes Reproductive: No Respiratory: No Schizophrenia: Yes Past Surgical History Abdominal Surgery: No Cardiac Surgery: No Ear Surgery: No Endocrine Surgery: No Eye Surgery: No Genitourinary Surgery: No Gynecologic Surgery: No Neurologic Surgery: No Oral Surgery: No Thoracic Surgery: No Other Surgery: Yes (SEE ED HISTORY AND PHYSICAL) Social History Alcohol Use: No Tobacco Use: Yes Substance Use: Yes (MARIJUANA) Allergies-Medications (Allergen,Severity, Reaction): Coded Allergies: No Known Allergies (Unverified , 03/14/17) Reported Meds & Prescriptions Reported Meds & Active Scripts Active Quetiapine (Quetiapine Fumarate) 400 Mg Tab 400 Mg PO HS Reported Quetiapine (Quetiapine Fumarate) 400 Mg Tab 400 Mg PO HS Morphine ER (Morphine Sulfate) 60 Mg Tab 60 Mg PO BID Pantoprazole (Pantoprazole Sodium) 20 Mg Tab 20 Mg PO DAILY Gabapentin 600 Mg Tab 600 Mg PO Q6HR Review of Systems Except as stated in HPI: all other systems reviewed are Neg Physical Exam Narrative GENERAL:Uncomfortable appearing. SKIN: Focused skin assessment warm and dry. HEAD: Atraumatic. Normocephalic. EYES: Pupils equal and round. No injection or drainage. ENT: Moist mucous membranes NECK: Trachea midline. CARDIOVASCULAR: Regular rate and rhythm. No murmur appreciated. RESPIRATORY: Clear to auscultation. Breath sounds equal bilaterally. GASTROINTESTINAL: Abdomen soft, tender to palpation in the right upper quadrant with guarding. (+) Lacey's sign MUSCULOSKELETAL: No obvious deformities. NEUROLOGICAL: Awake and alert. No obvious cranial nerve deficits. Moving all extremities. PSYCHIATRIC: Appropriate mood and affect; insight and judgment normal. Data Data Last Documented VS Vital Signs Date Time Temp Pulse Resp B/P Pulse Ox O2 Delivery O2 Flow Rate FiO2 03/14/17 20:30 17 03/14/17 19:37 99.3 110 173/106 97 Room Air Orders Complete Blood Count With Diff (03/14/17 20:46) Comprehensive Metabolic Panel (03/14/17 20:46) Us Abdomen Gallbladder (03/14/17 ) ^ Insert Iv (03/14/17 20:46) Lipase (03/14/17 20:46) Morphine Inj (Morphine Inj) (03/14/17 21:00) Ondansetron Inj (Zofran Inj) (03/14/17 21:00) Lorazepam Inj (Ativan Inj) (03/14/17 21:00) Sodium Chlor 0.9% 1000 Ml Inj (Ns 1000 M (03/14/17 21:00) Blood Culture (03/14/17 21:39) Lactic Acid (03/14/17 21:39) Piperacil-Tazo 3.375 Gm Premix (Zosyn 3. (03/14/17 21:45) Admit Order (Ed Use Only) (03/14/17 21:42) Labs Laboratory Tests Test 03/14/17 20:50 White Blood Count 17.4 TH/MM3 Red Blood Count 5.77 MIL/MM3 Hemoglobin 16.9 GM/DL Hematocrit 49.0 % Mean Corpuscular Volume 84.9 FL Mean Corpuscular Hemoglobin 29.3 PG Mean Corpuscular Hemoglobin 34.5 % Concent Red Cell Distribution Width 13.9 % Platelet Count 262 TH/MM3 Mean Platelet Volume 7.4 FL Neutrophils (%) (Auto) 80.4 % Lymphocytes (%) (Auto) 12.1 % Monocytes (%) (Auto) 6.4 % Eosinophils (%) (Auto) 0.6 % Basophils (%) (Auto) 0.5 % Neutrophils # (Auto) 14.0 TH/MM3 Lymphocytes # (Auto) 2.1 TH/MM3 Monocytes # (Auto) 1.1 TH/MM3 Eosinophils # (Auto) 0.1 TH/MM3 Basophils # (Auto) 0.1 TH/MM3 CBC Comment AUTO DIFF Differential Total Cells 100 Counted Neutrophils % (Manual) 80 % Band Neutrophils % 5 % Lymphocytes % 12 % Monocytes % 3 % Neutrophils # (Manual) 14.8 TH/MM3 Differential Comment FINAL DIFF MANUAL Platelet Estimate NORMAL Platelet Morphology Comment NORMAL Red Cell Morphology Comment NORMAL Sodium Level 138 MEQ/L Potassium Level 4.1 MEQ/L Chloride Level 105 MEQ/L Carbon Dioxide Level 23.7 MEQ/L Anion Gap 9 MEQ/L Blood Urea Nitrogen 15 MG/DL Creatinine 1.03 MG/DL Estimat Glomerular Filtration 77 ML/MIN Rate Random Glucose 101 MG/DL Calcium Level 8.7 MG/DL Total Bilirubin 0.5 MG/DL Aspartate Amino Transf 32 U/L (AST/SGOT) Alanine Aminotransferase 36 U/L (ALT/SGPT) Alkaline Phosphatase 110 U/L Total Protein 7.6 GM/DL Albumin 3.4 GM/DL Lipase 101 U/L [facility] Medical Decision Making Medical Screen Exam Complete: Yes Emergency Medical Condition: Yes Medical Record Reviewed: Yes (pt has had multiple psychiatric admissions in the past) Interpretation(s) 99.3, tachycardic, hypertensive leukocytosis 80% neutrophils electrolytes within normal limits Last 24 hours Impressions Gall Bladder Ultrasound 03/14/17 0000 Signed Impressions: Service Date/Time: Thursday, March 14, 2017 20:52 - CONCLUSION: 1. Thick-walled gallbladder containing stones with pericholecystic fluid and positive sonographic Lacey's sign consistent with probable acute cholecystitis. Clinical correlation is recommended. 2. Hepatomegaly. 3. Poor visualization of the pancreas due to shadowing bowel gas. Jose David Velasquez MD Differential Diagnosis Cholelithiasis, cholecystitis, pancreatitis, gastritis, peptic ulcer disease Narrative Course This is a 47-year-old male who presents to the emergency department with right upper quadrant abdominal pain, fever and vomiting. Labs are obtained which demonstrated a leukocytosis of 17. Biliary labs are reassuring. Ultrasound is consistent with acute cholecystitis. Patient will be admitted for surgical evaluation. I spoke to Dr. Chowdhury who will likely do surgery on Thursday. He requested the patient be admitted to medicine due to his history of psychiatric disease. The patient will be admitted to medicine by Dr. Carrillo. Physician Communication Physician Communication Discussed with Dr. Chowdhury and Dr. Carrillo Diagnosis Primary Impression: Acute cholecystitis Admitting Information Admitting Physician Requests: Admit Joan Garza MD Mar 14, 2017 21:00
[2017-03-14 21:28] LABS: BASOPHIL # 0.1 TH/MM3 (0-0.2); BASOPHIL % 0.5 % (0.0-2.0); EOSINOPHIL # 0.1 TH/MM3 (0-0.4); EOSINOPHIL % 0.6 % (0.0-4.0); LYMPH % 12.1 % (9.0-44.0); LYMPHOCYTE # 2.1 TH/MM3 (1.0-4.8); MEAN CELL VOLUME 84.9 FL (80.0-100.0); MEAN CORPUSCULAR HEMOGLOBIN 29.3 PG (27.0-34.0); MEAN CORPUSCULAR HGB CONC 34.5 % (32.0-36.0); MONO % 6.4 % (0.0-8.0); NEUT % 80.4 % (16.0-70.0); PLATELET COUNT 262 TH/MM3 (150-450); RED BLOOD COUNT 5.77 MIL/MM3 (4.50-5.90); RED CELL DISTRIBUTION WIDTH 13.9 % (11.6-17.2); WHITE BLOOD COUNT 17.4 TH/MM3 (4.0-11.0)
--- NOTE | 2017-03-14 21:33 | RADRPT ---
EXAM DATE/TIME: 03/14/2017 20:52 [facility] COMPARISON: No previous studies available for comparison. INDICATIONS : Right upper quadrant pain. MEDICAL HISTORY : Hypertension. Bipolar. SURGICAL HISTORY : Lumbar surgery. ENCOUNTER: Initial ACUITY: 2 days PAIN SCORE: 8/10 LOCATION: Right upper quadrant MEASUREMENTS: LIVER: 18.4 cm length COMMON DUCT: 4 mm RIGHT KIDNEY: 13.3 x 6.5 x 6.5 cm FINDINGS: The wall of the gallbladder is thickened. There is pericholecystic fluid and a positive sonographic Lacey's sign also. The findings are suggestive of acute cholecystitis. Clinical correlation is rec ommended. Multiple gallstones are noted within the gallbladder also. There is poor visualization of the pancreas due to shadowing bowel gas. The liver is enlarged but demonstrates no focal mass or bi liary ductal dilatation. There is hepatopetal flow within the portal vein. The common bile duct is normal in caliber and measures 4 mm. The right kidney is unremarkable. CONCLUSION: 1. Thick-walled gallbladder containing stones with pericholecystic fluid and positive sonographic Mu rphy's sign consistent with probable acute cholecystitis. Clinical correlation is recommended. 2. Hepatomegaly. 3. Poor visualization of the pancreas due to shadowing bowel gas. Jose David Velasquez MD on March 14, 2017 at 21:24 Board Certified Radiologist. This report was verified electronically.
[2017-03-14] MEDS ORDERED: PIPERACIL-TAZO 3.375 GM PREMIX 50 ML IV ONE (21:45)
[2017-03-14 21:53] LABS: ALT (GPT) 36 U/L (12-78)
[2017-03-14 21:56] LABS: ALKALINE PHOSPHATASE 110 U/L (45-117); HEMO FLAGS AUTO DIFF; TOTAL BILIRUBIN ADULT 0.5 MG/DL (0.2-1.0)
[2017-03-14 22:00] VITALS: BP 154/95; PULSE 80; RESP 17; O2SAT 100
[2017-03-14 22:14] LABS: ANION GAP 9 MEQ/L (5-15); AST (GOT) 32 U/L (15-37); BICARBONATE 23.7 MEQ/L (21.0-32.0); BLOOD UREA NITROGEN 15 MG/DL (7-18); CHLORIDE 105 MEQ/L (98-107); GLOMERULAR FILTRATION RATE 77 ML/MIN (>89); SODIUM (NA) 138 MEQ/L (136-145)
[2017-03-14 22:15] LABS: POTASSIUM 4.1 MEQ/L (3.5-5.1)
--- NOTE | 2017-03-14 22:22 | PD.CAR.PN ---
CVT Progress Note Subjective/Hospital Course: Patient with abdominal pain, nausea. Diagnosed with acute cholecystitis and cholelithiasis. Patient will be scheduled for laparoscopic cholecystaectomy at this admission. Patient is schizophrenic with repeated episodes of suicidal ideation and repeated admissions to [place] for the same. I will be happy to treat patient for his surgical issues. Full consult dictated. Thanks J Objective: Vital Signs Date Time Temp Pulse Resp B/P Pulse Ox O2 Delivery O2 Flow Rate FiO2 03/14/17 20:30 17 03/14/17 19:37 99.3 110 20 173/106 97 Room Air Labs: Laboratory Tests Test 03/14/17 20:50 White Blood Count 17.4 TH/MM3 (4.0-11.0) Red Blood Count 5.77 MIL/MM3 (4.50-5.90) Hemoglobin 16.9 GM/DL (13.0-17.0) Hematocrit 49.0 % (39.0-51.0) Mean Corpuscular Volume 84.9 FL (80.0-100.0) Mean Corpuscular Hemoglobin 29.3 PG (27.0-34.0) Mean Corpuscular Hemoglobin 34.5 % Concent (32.0-36.0) Red Cell Distribution Width 13.9 % (11.6-17.2) Platelet Count 262 TH/MM3 (150-450) Mean Platelet Volume 7.4 FL (7.0-11.0) Neutrophils (%) (Auto) 80.4 % (16.0-70.0) Lymphocytes (%) (Auto) 12.1 % (9.0-44.0) Monocytes (%) (Auto) 6.4 % (0.0-8.0) Eosinophils (%) (Auto) 0.6 % (0.0-4.0) Basophils (%) (Auto) 0.5 % (0.0-2.0) Neutrophils # (Auto) 14.0 TH/MM3 (1.8-7.7) Lymphocytes # (Auto) 2.1 TH/MM3 (1.0-4.8) Monocytes # (Auto) 1.1 TH/MM3 (0-0.9) Eosinophils # (Auto) 0.1 TH/MM3 (0-0.4) Basophils # (Auto) 0.1 TH/MM3 (0-0.2) CBC Comment AUTO DIFF Total Bilirubin 0.5 MG/DL (0.2-1.0) Alanine Aminotransferase 36 U/L (12-78) (ALT/SGPT) Alkaline Phosphatase 110 U/L (45-117) Total Protein 7.6 GM/DL (6.4-8.2) Result Diagram: 03/14/172049 Con Glez MD Mar 14, 2017 22:22
--- NOTE | 2017-03-14 22:29 | HHI.HP ---
[facility] Primary Care Physician No Primary Care Physician Admission Diagnosis acute cholecystitis Diagnoses: (1) Acute cholecystitis Diagnosis: Principal (2) Chronic back pain Diagnosis: Principal (3) Schizophrenia Diagnosis: Principal (4) HTN (hypertension) Diagnosis: Principal (5) Tobacco abuse Diagnosis: Principal Travel History International Travel<30 Days: No Contact w/Intl Traveler <30 Da: No Traveled to Known Affected Are: No History of Present Illness This is a 47-year-old male with a PMH of Bipolar Disorder/Schizophrenia, HTN, Chronic Back Pain and Tobacco Abuse who presented to the ER with complaints of RUQ pain x2 days w/ associated nausea, vomiting and subjective fever. Denies diarrhea or sick contacts. No h/o similar symptoms in the past. On arrival, BP 173/106, HR 110, O2 sat 97% on RA, Temp 99.3. WBC 17.4. Chemistry unremarkable except for GFR 77. Gallbladder US with thick-walled gallbladder containing stones and pericholecystic fluid with positive sonographic Lacey sign consistent with acute cholecystitis. Dr. Glez consulted by ER physician, plan is for surgical intervention. S/p Zosyn in ER. Review of Systems Except as stated in HPI: all other systems reviewed are Neg ROS: 14 point review of systems otherwise negative. Past Family Social History Past Medical History PMH: Bipolar Disorder/Schizophrenia, HTN, Chronic Back Pain and Tobacco Abuse Past Surgical History PAST SURGICAL HISTORY: None Allergies: Coded Allergies: No Known Allergies (Unverified , 03/14/17) Family History PAST FAMILY HISTORY: Reviewed. No h/o DM or CAD Social History PAST SOCIAL HISTORY: Negative for alcohol. Positive for tobacco. +Marijuana. Physical Exam Vital Signs Vital Signs Date Time Temp Pulse Resp B/P Pulse Ox O2 Delivery O2 Flow Rate FiO2 03/14/17 20:30 17 03/14/17 19:37 99.3 110 20 173/106 97 Room Air Physical Exam PE: GENERAL: Middle-aged male in no acute distress. HEENT: PERRLA, EOMI. No scleral icterus or conjunctival pallor. No lid lag or facial droop. CARDIOVASCULAR: Regular rate and rhythm. No obvious murmurs to auscultation. No chest tenderness to palpation. RESPIRATORY: No obvious rhonchi or wheezing. Clear to auscultation. Breath sounds equal bilaterally. GASTROINTESTINAL: Abdomen soft, RUQ tenderness to palpation, nondistended. BS normal. MUSCULOSKELETAL: Extremities without clubbing, cyanosis, or edema. No obvious deformities. NEUROLOGICAL: Awake, alert and oriented x4. No focal neurologic deficits. Moving both upper and lower extremities spontaneously. Laboratory Laboratory Tests Test 03/14/17 20:50 White Blood Count 17.4 Red Blood Count 5.77 Hemoglobin 16.9 Hematocrit 49.0 Mean Corpuscular Volume 84.9 Mean Corpuscular Hemoglobin 29.3 Mean Corpuscular Hemoglobin 34.5 Concent Red Cell Distribution Width 13.9 Platelet Count 262 Mean Platelet Volume 7.4 Neutrophils (%) (Auto) 80.4 Lymphocytes (%) (Auto) 12.1 Monocytes (%) (Auto) 6.4 Eosinophils (%) (Auto) 0.6 Basophils (%) (Auto) 0.5 Neutrophils # (Auto) 14.0 Lymphocytes # (Auto) 2.1 Monocytes # (Auto) 1.1 Eosinophils # (Auto) 0.1 Basophils # (Auto) 0.1 CBC Comment AUTO DIFF Sodium Level 138 Potassium Level 4.1 Chloride Level 105 Carbon Dioxide Level 23.7 Anion Gap 9 Blood Urea Nitrogen 15 Creatinine 1.03 Estimat Glomerular Filtration 77 Rate Random Glucose 101 Calcium Level 8.7 Total Bilirubin 0.5 Aspartate Amino Transf 32 (AST/SGOT) Alanine Aminotransferase 36 (ALT/SGPT) Alkaline Phosphatase 110 Total Protein 7.6 Albumin 3.4 Lipase 101 Result Diagram: 03/14/17204903/14/172049 Assessment and Plan Problem List: (1) Acute cholecystitis ICD Code: K81.0 Status: Acute (2) Chronic back pain ICD Code: M54.9 Status: Acute (3) Schizophrenia ICD Code: F20.9 Status: Acute (4) HTN (hypertension) ICD Code: I10 Status: Acute (5) Tobacco abuse ICD Code: Z72.0 Status: Acute Assessment and Plan A/P: 1. Acute Cholecystitis: acute onset of RUQ pain x2 days, Gallbladder US consistent w/ acute cholecystitis, images reviewed by me. Dr. Glez consulted by ER physician, plan is for surgical intervention. IVF, diet as tolerated, NPO prior to surgery, analgesics/antiemetics as needed. S/p Zosyn in ER, continue w/ IV Abx. 2. Chronic Back Pain: On Morphine ER 60mg bid for h/o chronic back pain, takes medications intermittently, will resume home medications. 3. HTN: BP 170's on arrival, likely compounded by pain complaints. BP currently 146/90, HR 80. Will monitor. Antihypertensives as needed. 4. Schizophrenia: Stable. No acute psychosis. Resume home medications. 5. DVT Prophylaxis: SCD/Teds. 6. Social work for d/c planning as needed. 7. Case discussed w/ ER physician at length. Physician Certification 2 Midnight Certification Type: Admission for Inpatient Services Order for Inpatient Services The services are ordered in accordance with Medicare regulations or non- Medicare payer requirements, as applicable. In the case of services not specified as inpatient-only, they are appropriately provided as inpatient services in accordance with the 2-midnight benchmark. Estimated LOS (days): 2 days is the estimated time the patient will need to remain in the hospital, assuming treatment plan goals are met and no additional complications. Post-Hospital Plan: Not yet determined Fransisca Carrillo MD Mar 14, 2017 22:29
[2017-03-14] MEDS ORDERED: MAGNESIUM HYDROXIDE SUSP 30 ML CUP PO PRN (22:30)
[2017-03-14] MEDS ORDERED: ONDANSETRON HCL 4 MG/2 ML VIAL IVP PRN (22:30)
[2017-03-14] MEDS ORDERED: BISACODYL 10 MG SUPP RECTAL PRN (22:30)
[2017-03-14] MEDS ORDERED: ACETAMINOPHEN 325 MG TAB PO PRN (22:30)
[2017-03-14] MEDS ORDERED: SENNOSIDES 8.6 MG TAB PO PRN (22:30)
[2017-03-14] MEDS ORDERED: LACTULOSE SYRUP 20 GM/30 ML CUP PO PRN (22:30)
[2017-03-14] MEDS ORDERED: SODIUM CHLORIDE 0.9% FLUSH 10 ML FLUSH IV FLUSH PRN (22:30)
[2017-03-14 22:51] LABS: BANDS 5 % (0-6); NEUTROPHIL # MANUAL DIFF 14.8 TH/MM3 (1.8-7.7); PLATELET ESTIMATE SMEAR NORMAL (NORMAL); PLATELET MORPHOLOGY NORMAL (NORMAL); POLYS (SEG NEUTROPHILS) 80 % (16-70); SCAN/DIFF FINAL DIFF MANUAL; WBC DIFF SAMPLE 100
[2017-03-14 23:00] VITALS: BP 146/90; PULSE 82; RESP 16; O2SAT 100
[2017-03-14] MEDS: SODIUM CHLOR 0.9% 1000 ML INJ 1,000 ML IV SCH (23:04)
[2017-03-14] MEDS: metroNIDAZOLE 500 MG INJ 100 ML IV SCH (23:04)
[2017-03-14] MEDS: GABAPENTIN 300 MG CAP PO SCH (23:41)
[2017-03-14] MEDS: QUEtiapine FUMARATE 200 MG TAB PO SCH (23:41)
[2017-03-15] VITALS: BP 147/80; PULSE 88; RESP 22; TEMP 98.4; O2SAT 94
[2017-03-15] MEDS: MORPHINE SULFATE 4 MG/ML INJ IV PRN ×6 (00:17→22:34)
[2017-03-15] MEDS: metroNIDAZOLE 500 MG INJ 100 ML IV SCH ×3 (05:05→20:21)
[2017-03-15] MEDS: GABAPENTIN 300 MG CAP PO SCH ×4 (05:05→22:33)
--- NOTE | 2017-03-15 05:09 | PD.CAR.PN ---
CVT Progress Note Subjective/Hospital Course: Patient with abdominal pain, nausea. Diagnosed with acute cholecystitis and cholelithiasis. Patient will be scheduled for laparoscopic cholecystaectomy at this admission. Patient is schizophrenic with repeated episodes of suicidal ideation and repeated admissions to [place] for the same. I will be happy to treat patient for his surgical issues. Full consult dictated. Thanks J 03/15/17 Abdomen soft active bowel sounds very tender in right upper quadrant with positive Lacey sign in localized rebound and guarding Acute cholecystitis with cholelithiasis For surgery Thursday Objective: Vital Signs Date Time Temp Pulse Resp B/P Pulse Ox O2 Delivery O2 Flow Rate FiO2 03/15/17 00:00 98.4 88 22 147/80 94 03/14/17 23:00 82 16 146/90 100 03/14/17 22:00 80 17 154/95 100 03/14/17 20:30 17 03/14/17 19:37 99.3 110 20 173/106 97 Room Air Labs: Laboratory Tests Test 03/14/17 03/14/17 20:50 21:51 White Blood Count 17.4 TH/MM3 (4.0-11.0) Red Blood Count 5.77 MIL/MM3 (4.50-5.90) Hemoglobin 16.9 GM/DL (13.0-17.0) Hematocrit 49.0 % (39.0-51.0) Mean Corpuscular Volume 84.9 FL (80.0-100.0) Mean Corpuscular Hemoglobin 29.3 PG (27.0-34.0) Mean Corpuscular Hemoglobin 34.5 % Concent (32.0-36.0) Red Cell Distribution Width 13.9 % (11.6-17.2) Platelet Count 262 TH/MM3 (150-450) Mean Platelet Volume 7.4 FL (7.0-11.0) Neutrophils (%) (Auto) 80.4 % (16.0-70.0) Lymphocytes (%) (Auto) 12.1 % (9.0-44.0) Monocytes (%) (Auto) 6.4 % (0.0-8.0) Eosinophils (%) (Auto) 0.6 % (0.0-4.0) Basophils (%) (Auto) 0.5 % (0.0-2.0) Neutrophils # (Auto) 14.0 TH/MM3 (1.8-7.7) Lymphocytes # (Auto) 2.1 TH/MM3 (1.0-4.8) Monocytes # (Auto) 1.1 TH/MM3 (0-0.9) Eosinophils # (Auto) 0.1 TH/MM3 (0-0.4) Basophils # (Auto) 0.1 TH/MM3 (0-0.2) CBC Comment AUTO DIFF Differential Total Cells 100 Counted Neutrophils % (Manual) 80 % (16-70) Band Neutrophils % 5 % (0-6) Lymphocytes % 12 % (9-44) Monocytes % 3 % (0-8) Neutrophils # (Manual) 14.8 TH/MM3 (1.8-7.7) Differential Comment FINAL DIFF MANUAL Platelet Estimate NORMAL (NORMAL) Platelet Morphology Comment NORMAL (NORMAL) Red Cell Morphology Comment NORMAL (NORMAL) Sodium Level 138 MEQ/L (136-145) Potassium Level 4.1 MEQ/L (3.5-5.1) Chloride Level 105 MEQ/L (98-107) Carbon Dioxide Level 23.7 MEQ/L (21.0-32.0) Anion Gap 9 MEQ/L (5-15) Blood Urea Nitrogen 15 MG/DL (7-18) Creatinine 1.03 MG/DL (0.60-1.30) Estimat Glomerular Filtration 77 ML/MIN (>89) Rate Random Glucose 101 MG/DL (74-106) Calcium Level 8.7 MG/DL (8.5-10.1) Total Bilirubin 0.5 MG/DL (0.2-1.0) Aspartate Amino Transf 32 U/L (15-37) (AST/SGOT) Alanine Aminotransferase 36 U/L (12-78) (ALT/SGPT) Alkaline Phosphatase 110 U/L (45-117) Total Protein 7.6 GM/DL (6.4-8.2) Albumin 3.4 GM/DL (3.4-5.0) Lipase 101 U/L (73-393) Lactic Acid Level 1.1 mmol/L (0.4-2.0) Result Diagram: 03/14/17204903/14/172049 Con Glez MD Mar 15, 2017 05:09
[2017-03-15 05:11] LABS: AUTOMATED NEUTROPHIL # 8.7 TH/MM3 (1.8-7.7); BASOPHIL # 0.1 TH/MM3 (0-0.2); BASOPHIL % 0.5 % (0.0-2.0); EOSINOPHIL # 0.2 TH/MM3 (0-0.4); EOSINOPHIL % 1.8 % (0.0-4.0); HEMATOCRIT 45.5 % (39.0-51.0); HEMO FLAGS DIFF FINAL; LYMPH % 20.9 % (9.0-44.0); LYMPHOCYTE # 2.6 TH/MM3 (1.0-4.8); MEAN CELL VOLUME 84.7 FL (80.0-100.0); MEAN CORPUSCULAR HEMOGLOBIN 28.9 PG (27.0-34.0); MEAN CORPUSCULAR HGB CONC 34.2 % (32.0-36.0); MONO % 8.4 % (0.0-8.0); NEUT % 68.4 % (16.0-70.0); PLATELET COUNT 235 TH/MM3 (150-450); RED BLOOD COUNT 5.37 MIL/MM3 (4.50-5.90); RED CELL DISTRIBUTION WIDTH 14.2 % (11.6-17.2); WHITE BLOOD COUNT 12.7 TH/MM3 (4.0-11.0)
[2017-03-15 05:34] LABS: ANION GAP 8 MEQ/L (5-15); AST (GOT) 30 U/L (15-37); BICARBONATE 25.8 MEQ/L (21.0-32.0); BLOOD UREA NITROGEN 13 MG/DL (7-18); CHLORIDE 105 MEQ/L (98-107); GLOMERULAR FILTRATION RATE 90 ML/MIN (>89); POTASSIUM 3.8 MEQ/L (3.5-5.1); SODIUM (NA) 139 MEQ/L (136-145)
[2017-03-15 05:35] LABS: ALT (GPT) 40 U/L (12-78)
[2017-03-15 05:37] LABS: ALKALINE PHOSPHATASE 101 U/L (45-117); TOTAL BILIRUBIN ADULT 0.5 MG/DL (0.2-1.0)
[2017-03-15] MEDS ORDERED: LACTATED RINGER'S 1000 ML IV PRN (06:15)
[2017-03-15 08:00] VITALS: BP 132/83; PULSE 100; RESP 22; TEMP 98.1; O2SAT 95
--- NOTE | 2017-03-15 08:10 | HHI.PR ---
Subjective Remarks This is a 47-year-old male with a PMH of Bipolar Disorder/Schizophrenia, HTN, Chronic Back Pain and Tobacco Abuse who presented to the ER with complaints of RUQ pain x2 days w/ associated nausea, vomiting and subjective fever. Denies diarrhea or sick contacts. Gallbladder US with thick-walled gallbladder containing stones and pericholecystic fluid with positive sonographic Lacey sign consistent with acute cholecystitis. medical administrative specialist following for surgical intervention Next week. 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 Objective Vital Signs Date Time Temp Pulse Resp B/P Pulse Ox O2 Delivery O2 Flow Rate FiO2 03/15/17 00:00 98.4 88 22 147/80 94 03/14/17 23:00 82 16 146/90 100 03/14/17 22:00 80 17 154/95 100 03/14/17 20:30 17 03/14/17 19:37 99.3 110 20 173/106 97 Room Air I/O 03/14/17 03/14/17 03/14/17 03/15/17 03/15/17 03/15/17 07:00 15:00 23:00 07:00 15:00 23:00 Intake Total 750 ml Balance 750 ml Intake IV Total 750 ml Result Diagram: 03/15/17 0438 03/15/17 0438 Imaging Last Impressions Gall Bladder Ultrasound 03/14/17 0000 Signed Impressions: Service Date/Time: Tuesday, March 14, 2017 20:52 - CONCLUSION: 1. Thick-walled gallbladder containing stones with pericholecystic fluid and positive sonographic Lacey's sign consistent with probable acute cholecystitis. Clinical correlation is recommended. 2. Hepatomegaly. 3. Poor visualization of the pancreas due to shadowing bowel gas. Jose David Velasquez MD Procedures None Other Results Laboratory Tests Test 03/14/17 03/14/17 03/15/17 20:50 21:51 04:38 Differential Total Cells 100 Counted Neutrophils % (Manual) 80 % Band Neutrophils % 5 % Lymphocytes % 12 % Monocytes % 3 % Neutrophils # (Manual) 14.8 TH/MM3 Platelet Estimate NORMAL Platelet Morphology Comment NORMAL Red Cell Morphology Comment NORMAL Lipase 101 U/L Lactic Acid Level 1.1 mmol/L White Blood Count 12.7 TH/MM3 Red Blood Count 5.37 MIL/MM3 Hemoglobin 15.5 GM/DL Hematocrit 45.5 % Mean Corpuscular Volume 84.7 FL Mean Corpuscular Hemoglobin 28.9 PG Mean Corpuscular Hemoglobin 34.2 % Concent Red Cell Distribution Width 14.2 % Platelet Count 235 TH/MM3 Mean Platelet Volume 7.3 FL Neutrophils (%) (Auto) 68.4 % Lymphocytes (%) (Auto) 20.9 % Monocytes (%) (Auto) 8.4 % Eosinophils (%) (Auto) 1.8 % Basophils (%) (Auto) 0.5 % Neutrophils # (Auto) 8.7 TH/MM3 Lymphocytes # (Auto) 2.6 TH/MM3 Monocytes # (Auto) 1.1 TH/MM3 Eosinophils # (Auto) 0.2 TH/MM3 Basophils # (Auto) 0.1 TH/MM3 CBC Comment DIFF FINAL Differential Comment Sodium Level 139 MEQ/L Potassium Level 3.8 MEQ/L Chloride Level 105 MEQ/L Carbon Dioxide Level 25.8 MEQ/L Anion Gap 8 MEQ/L Blood Urea Nitrogen 13 MG/DL Creatinine 0.90 MG/DL Estimat Glomerular Filtration 90 ML/MIN Rate Random Glucose 103 MG/DL Calcium Level 8.6 MG/DL Total Bilirubin 0.5 MG/DL Aspartate Amino Transf 30 U/L (AST/SGOT) Alanine Aminotransferase 40 U/L (ALT/SGPT) Alkaline Phosphatase 101 U/L Total Protein 6.9 GM/DL Albumin 3.0 GM/DL Objective Remarks GENERAL: No acute distress. HEENT: PERRLA, EOMI. No scleral icterus or conjunctival pallor. No lid lag or facial droop. CARDIOVASCULAR: Regular rate and rhythm. No obvious murmurs to auscultation. No chest tenderness to palpation. RESPIRATORY: No obvious rhonchi or wheezing. Clear to auscultation. Breath sounds equal bilaterally. GASTROINTESTINAL: Abdomen soft, RUQ tenderness to palpation, nondistended. BS normal. MUSCULOSKELETAL: Extremities without clubbing, cyanosis, or edema. No obvious deformities. NEUROLOGICAL: Awake, alert and oriented x4. No focal neurologic deficits. Moving both upper and lower extremities spontaneously. Medications and IVs Current Medications Medications (Trade) Dose Ordered Sig/Alex Route Start Time Stop Time Status Last Admin Cefazolin Sodium 1000 mg/Sodium Chloride 100 ml @ 200 mls/hr Q8H IV 03/15/17 00:00 03/14/17 23:40 Metronidazole 100 ml @ 100 mls/hr Q8H IV 03/14/17 22:30 03/15/17 05:05 (NS 1000 ml Inj) 1,000 ml @ 100 mls/hr Q10H IV 03/14/17 22:26 03/14/17 23:04 (NS Flush) 2 ml UNSCH PRN IV FLUSH 03/14/17 22:30 (NS Flush) 2 ml BID IV FLUSH 03/15/17 09:00 (Zofran Inj) 4 mg Q6H PRN IVP 03/14/17 22:30 03/15/17 00:17 (Tylenol) 650 mg Q6H PRN PO 03/14/17 22:30 (Morphine Inj) 2 mg Q3H PRN IV 03/14/17 22:30 03/15/17 00:17 (Brionna-Colace) 1 tab BID PO 03/15/17 09:00 (Milk Of Magnesia Liq) 30 ml Q12H PRN PO 03/14/17 22:30 (Senokot) 17.2 mg Q12H PRN PO 03/14/17 22:30 (Dulcolax Supp) 10 mg DAILY PRN RECTAL 03/14/17 22:30 (Lactulose Liq) 30 ml DAILY PRN PO 03/14/17 22:30 (Neurontin) 600 mg Q6HR PO 03/15/17 00:00 03/15/17 05:05 (Oramorph Sr) 60 mg BID PO 03/15/17 09:00 (Protonix) 20 mg DAILY PO 03/15/17 09:00 Quetiapine Fumarate 200 mg 200 mg BID PO 03/14/17 22:30 03/14/17 23:41 (Lr 1000 ml Inj) 1,000 ml @ 30 mls/hr Q24H PRN IV 03/15/17 06:15 03/18/17 06:14 A/P Assessment and Plan 1. Acute Cholecystitis: acute onset of RUQ pain x2 days, Gallbladder US consistent w/ acute cholecystitis, images reviewed by me. Dr. Glez consulted by ER physician, plan is for surgical intervention. IVF, diet as tolerated, NPO prior to surgery, analgesics/antiemetics as needed. S/p Zosyn in ER, continue w/ IV Abx. Scheduled procedure Laparoscopic Cholecystectomy for tomorrow in AM. Blood cultures negative, Leukocytosis trending down to 12.7 from 12.4. 2. Chronic Back Pain: On Morphine ER 60mg bid for h/o chronic back pain, takes medications intermittently, will resume home medications. 3. HTN: he is not taking antihypertensive medicines, on Clonidine PRN for Hypertension that could be related to Pain following. 4. Schizophrenia: Stable. No acute psychosis, continue Home medicines 5. Obesity strongly recommended diet and exercise 6. Tobacco dependence on Bronchodilator, Mucolytic and incentive spirometry, strongly recommended to stop smoking. complete laboratory. DVT Prophylaxis: SCD/Teds. for surgery tomorrow. Social work for d/c planning as needed. Discharge Planning Once cleared by Surgical Team Blue Quijano MD Mar 15, 2017 08:10
[2017-03-15] MEDS: SODIUM CHLORIDE 0.9% FLUSH 10 ML FLUSH IV FLUSH SCH ×2 (08:22→20:21)
[2017-03-15] MEDS: PANTOPRAZOLE SOD 20 MG DELAYED RELEASE TAB PO SCH (08:22)
[2017-03-15] MEDS: DOCUSATE SODIUM 50 MG/SENNA 8.6 MG TAB PO SCH ×2 (08:22→20:21)
[2017-03-15] MEDS: MORPHINE SULFATE 60 MG CONTROLLED RELEASE TAB PO SCH ×2 (08:22→20:21)
[2017-03-15] MEDS: SODIUM CHLOR 0.9% 1000 ML INJ 1,000 ML IV SCH ×3 (08:22→22:33)
[2017-03-15] MEDS: QUEtiapine FUMARATE 200 MG TAB PO SCH ×2 (08:25→20:21)
[2017-03-15 09:00] LABS: FREE T4 1.08 NG/DL (0.76-1.46); HDL CHOLESTEROL 37.4 MG/DL (40.0-60.0)
--- NOTE | 2017-03-15 11:53 | EKG ---
Date Performed: 03/14/2017 Time Performed: 23:03:32 PTAGE: 47 years EKG: Sinus rhythm Since previous tracing, no significant change noted NORMAL ECG PREVIOUS TRACING : 04/30/2016 14.07 DOCTOR: Hiren Boogie Interpretating Date/Time 03/15/2017 11:52:50
[2017-03-15] MEDS: RESP: ALBUTEROL 2.5 MG/IPRATROPIUM 0.5 MG NEB (SCH) NEB ×2 (11:56→18:56)
[2017-03-15 12:00] VITALS: BP 142/66; PULSE 92; RESP 20; TEMP 98; O2SAT 96
[2017-03-15] MEDS: guaiFENesin E.R. 600 MG TAB PO SCH ×2 (12:36→20:21)
[2017-03-15 16:00] VITALS: BP 132/76; PULSE 93; RESP 20; TEMP 99.6; O2SAT 95
[2017-03-15 20:00] VITALS: BP 124/77; PULSE 86; RESP 20; TEMP 99.3; O2SAT 97
[2017-03-15 23:28] VITALS: BP 132/72; PULSE 91; RESP 20; TEMP 99; O2SAT 95
[2017-03-16] MEDS: MORPHINE SULFATE 4 MG/ML INJ IV PRN ×5 (01:22→21:28)
[2017-03-16] MEDS: metroNIDAZOLE 500 MG INJ 100 ML IV SCH ×4 (04:54→21:13)
[2017-03-16] MEDS: GABAPENTIN 300 MG CAP PO SCH ×4 (04:54→23:33)
[2017-03-16 08:00] VITALS: BP 131/74; PULSE 90; RESP 20; TEMP 97; O2SAT 94
[2017-03-16] MEDS: RESP: ALBUTEROL 2.5 MG/IPRATROPIUM 0.5 MG NEB (SCH) NEB ×3 (08:13→19:23)
[2017-03-16] MEDS: MORPHINE SULFATE 60 MG CONTROLLED RELEASE TAB PO SCH ×2 (08:27→21:11)
[2017-03-16] MEDS: DOCUSATE SODIUM 50 MG/SENNA 8.6 MG TAB PO SCH ×2 (08:27→21:12)
[2017-03-16] MEDS: PANTOPRAZOLE SOD 20 MG DELAYED RELEASE TAB PO SCH (08:27)
[2017-03-16] MEDS: guaiFENesin E.R. 600 MG TAB PO SCH ×2 (08:27→21:11)
[2017-03-16] MEDS: SODIUM CHLORIDE 0.9% FLUSH 10 ML FLUSH IV FLUSH SCH ×2 (08:27→21:00)
--- NOTE | 2017-03-16 08:55 | HHI.PR ---
Subjective Remarks This is a 47-year-old male with a PMH of Bipolar Disorder/Schizophrenia, HTN, Chronic Back Pain and Tobacco Abuse who presented to the ER with complaints of RUQ pain x2 days w/ associated nausea, vomiting and subjective fever. Denies diarrhea or sick contacts. Gallbladder US with thick-walled gallbladder containing stones and pericholecystic fluid with positive sonographic Lacey sign consistent with acute cholecystitis. building specialist following for surgical intervention Next week. 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 03/16: Stable in his bedroom, no nausea, vomit or diarrhea, states his pain is now radiated to his Right flank and right lower quadrant Objective Vital Signs Date Time Temp Pulse Resp B/P Pulse Ox O2 Delivery O2 Flow Rate FiO2 03/16/17 08:00 97.0 90 20 131/74 94 03/15/17 23:28 99.0 91 20 132/72 95 03/15/17 20:00 99.3 86 20 124/77 97 03/15/17 16:00 99.6 93 20 132/76 95 03/15/17 12:00 98.0 92 20 142/66 96 I/O 03/15/17 03/15/17 03/15/17 03/16/17 03/16/17 03/16/17 07:00 15:00 23:00 07:00 15:00 23:00 Intake Total 750 ml 1690 ml 950 ml 990 ml Balance 750 ml 1690 ml 950 ml 990 ml Intake Oral 942 ml 240 ml 240 ml IV Total 750 ml 748 ml 710 ml 750 ml # Voids 7 1 2 # Bowel Movements 0 0 0 Result Diagram: 03/15/17 0438 03/15/17 0438 Imaging Last Impressions Gall Bladder Ultrasound 03/14/17 0000 Signed Impressions: Service Date/Time: Tuesday, March 14, 2017 20:52 - CONCLUSION: 1. Thick-walled gallbladder containing stones with pericholecystic fluid and positive sonographic Lacey's sign consistent with probable acute cholecystitis. Clinical correlation is recommended. 2. Hepatomegaly. 3. Poor visualization of the pancreas due to shadowing bowel gas. Jose David Velasquez MD Procedures None Other Results Laboratory Tests Test 03/14/17 03/14/17 03/15/17 20:50 21:51 04:38 Differential Total Cells 100 Counted Neutrophils % (Manual) 80 % Band Neutrophils % 5 % Lymphocytes % 12 % Monocytes % 3 % Neutrophils # (Manual) 14.8 TH/MM3 Platelet Estimate NORMAL Platelet Morphology Comment NORMAL Red Cell Morphology Comment NORMAL Lipase 101 U/L Lactic Acid Level 1.1 mmol/L White Blood Count 12.7 TH/MM3 Red Blood Count 5.37 MIL/MM3 Hemoglobin 15.5 GM/DL Hematocrit 45.5 % Mean Corpuscular Volume 84.7 FL Mean Corpuscular Hemoglobin 28.9 PG Mean Corpuscular Hemoglobin 34.2 % Concent Red Cell Distribution Width 14.2 % Platelet Count 235 TH/MM3 Mean Platelet Volume 7.3 FL Neutrophils (%) (Auto) 68.4 % Lymphocytes (%) (Auto) 20.9 % Monocytes (%) (Auto) 8.4 % Eosinophils (%) (Auto) 1.8 % Basophils (%) (Auto) 0.5 % Neutrophils # (Auto) 8.7 TH/MM3 Lymphocytes # (Auto) 2.6 TH/MM3 Monocytes # (Auto) 1.1 TH/MM3 Eosinophils # (Auto) 0.2 TH/MM3 Basophils # (Auto) 0.1 TH/MM3 CBC Comment DIFF FINAL Differential Comment Sodium Level 139 MEQ/L Potassium Level 3.8 MEQ/L Chloride Level 105 MEQ/L Carbon Dioxide Level 25.8 MEQ/L Anion Gap 8 MEQ/L Blood Urea Nitrogen 13 MG/DL Creatinine 0.90 MG/DL Estimat Glomerular Filtration 90 ML/MIN Rate Random Glucose 103 MG/DL Calcium Level 8.6 MG/DL Total Bilirubin 0.5 MG/DL Aspartate Amino Transf 30 U/L (AST/SGOT) Alanine Aminotransferase 40 U/L (ALT/SGPT) Alkaline Phosphatase 101 U/L Total Protein 6.9 GM/DL Albumin 3.0 GM/DL Triglycerides Level 149 MG/DL Cholesterol Level 164 MG/DL LDL Cholesterol 97 MG/DL HDL Cholesterol 37.4 MG/DL Cholesterol/HDL Ratio 4.38 RATIO Free Thyroxine 1.08 NG/DL Thyroid Stimulating Hormone 1.380 uIU/ML 3rd Gen Objective Remarks GENERAL: Obesity, No acute distress. HEENT: PERRLA, EOMI. No scleral icterus or conjunctival pallor. No lid lag or facial droop. CARDIOVASCULAR: Regular rate and rhythm. No obvious murmurs to auscultation. No chest tenderness to palpation. RESPIRATORY: No obvious rhonchi or wheezing. Clear to auscultation. Breath sounds equal bilaterally. GASTROINTESTINAL: Abdomen soft, RUQ tenderness to palpation, nondistended. BS normal. MUSCULOSKELETAL: Extremities without clubbing, cyanosis, or edema. No obvious deformities. NEUROLOGICAL: Awake, alert and oriented x4. No focal neurologic deficits. Moving both upper and lower extremities spontaneously. Medications and IVs Current Medications Medications (Trade) Dose Ordered Sig/Alex Route Start Time Stop Time Status Last Admin Cefazolin Sodium 1000 mg/Sodium Chloride 100 ml @ 200 mls/hr Q8H IV 03/15/17 00:00 03/16/17 08:27 Metronidazole 100 ml @ 100 mls/hr Q8H IV 03/14/17 22:30 03/16/17 04:54 (NS 1000 ml Inj) 1,000 ml @ 100 mls/hr Q10H IV 03/14/17 22:26 03/15/17 22:33 (NS Flush) 2 ml UNSCH PRN IV FLUSH 03/14/17 22:30 (NS Flush) 2 ml BID IV FLUSH 03/15/17 09:00 03/16/17 08:27 (Zofran Inj) 4 mg Q6H PRN IVP 03/14/17 22:30 03/15/17 00:17 (Tylenol) 650 mg Q6H PRN PO 03/14/17 22:30 (Morphine Inj) 2 mg Q3H PRN IV 03/14/17 22:30 03/16/17 04:55 (Brionna-Colace) 1 tab BID PO 03/15/17 09:00 03/15/17 20:21 (Milk Of Magnesia Liq) 30 ml Q12H PRN PO 03/14/17 22:30 (Senokot) 17.2 mg Q12H PRN PO 03/14/17 22:30 (Dulcolax Supp) 10 mg DAILY PRN RECTAL 03/14/17 22:30 (Lactulose Liq) 30 ml DAILY PRN PO 03/14/17 22:30 (Neurontin) 600 mg Q6HR PO 03/15/17 00:00 03/15/17 22:33 (Oramorph Sr) 60 mg BID PO 03/15/17 09:00 03/16/17 08:27 Pantoprazole Sodium 20 mg 20 mg DAILY PO 03/15/17 09:00 03/16/17 08:27 (Lr 1000 ml Inj) 1,000 ml @ 30 mls/hr Q24H PRN IV 03/15/17 06:15 03/18/17 06:14 (Mucinex Er) 600 mg BID PO 03/15/17 09:00 03/16/17 08:27 (SEROquel) 200 mg HS PO 03/15/17 21:00 03/15/17 20:21 A/P Assessment and Plan 1. Acute Cholecystitis: acute onset of RUQ pain x2 days, Gallbladder US consistent w/ acute cholecystitis, images reviewed by me. Dr. Glez consulted by ER physician, plan is for surgical intervention. IVF, diet as tolerated, NPO prior to surgery, analgesics/antiemetics as needed. S/p Zosyn in ER, continue w/ IV Abx. Scheduled procedure Laparoscopic Cholecystectomy today. Blood cultures negative, Leukocytosis trending down to 12.7 from 12.4. 2. Chronic Back Pain: On Morphine ER 60mg bid for h/o chronic back pain, takes medications intermittently, will resume home medications. 3. HTN: he is not taking antihypertensive medicines, on Clonidine PRN for Hypertension that could be related to Pain following. 4. Schizophrenia: Stable. No acute psychosis, continue Home medicines 5. Obesity strongly recommended diet and exercise 6. Tobacco dependence on Bronchodilator, Mucolytic and incentive spirometry, strongly recommended to stop smoking. DVT Prophylaxis: SCD/Teds. for surgery later today. Social work for d/c planning as needed. Discharge Planning Once cleared by Surgical Team Blue Quijano MD Mar 16, 2017 08:55
[2017-03-16] MEDS ORDERED: PHENYLEPH/NS 1000 MCG/10 ML SYR IV ONE (12:00)
[2017-03-16] MEDS ORDERED: ONDANSETRON HCL 4 MG/2 ML VIAL IV PUSH ONE (12:00)
[2017-03-16] MEDS ORDERED: ePHEDrine/NS 25 MG/5 ML SYR IV ONE (12:00)
[2017-03-16] MEDS ORDERED: LACTATED RINGER'S 1000 ML INJ 1,000 ML IV ONE (12:00)
[2017-03-16] MEDS ORDERED: PROPOFOL 200 MG/20 ML AMP IV ONE (12:00)
[2017-03-16] MEDS ORDERED: NEOSTIGMINE 3 MG/3 ML SYR IV ONE (12:00)
[2017-03-16] MEDS ORDERED: FAMOTIDINE 20 MG/2 ML VIAL ONE (12:42)
[2017-03-16] MEDS ORDERED: DEXAMETHASONE SOD PHOS 4 MG/ML VIAL ONE (12:42)
[2017-03-16] MEDS ORDERED: MIDAZOLAM HCL 2 MG/2 ML VIAL ONE (12:42)
[2017-03-16] MEDS ORDERED: fentaNYL CITRATE 250 MCG/5 ML AMP ONE ×2 (12:43→15:35)
[2017-03-16] MEDS: SODIUM CHLOR 0.9% 1000 ML INJ 1,000 ML IV SCH ×2 (14:26→23:34)
[2017-03-16] MEDS ORDERED: ceFAZolin INJ 1,000 MG VIAL IV ONE (16:00)
[2017-03-16] MEDS ORDERED: DO NOT ADM ANY ANTICOAGULANT DRUGS PRN (16:00)
[2017-03-16 17:00] VITALS: BP 134/74; PULSE 85; RESP 20; TEMP 96.7; O2SAT 95
[2017-03-16 19:27] VITALS: O2SAT 97
[2017-03-16 20:00] VITALS: BP 119/68; PULSE 91; RESP 18; TEMP 97.7; O2SAT 95
[2017-03-16] MEDS: QUEtiapine FUMARATE 200 MG TAB PO SCH (21:12)
[2017-03-17 00:08] VITALS: BP 113/53; PULSE 76; RESP 20; TEMP 97.8; O2SAT 94
[2017-03-17] MEDS: MORPHINE SULFATE 4 MG/ML INJ IV PRN ×3 (00:29→06:28)
[2017-03-17 04:00] VITALS: BP 134/85; PULSE 80; RESP 19; TEMP 98; O2SAT 95
[2017-03-17] MEDS: GABAPENTIN 300 MG CAP PO SCH ×2 (05:23→11:35)
[2017-03-17] MEDS: metroNIDAZOLE 500 MG INJ 100 ML IV SCH (05:24)
[2017-03-17 07:14] LABS: HEMATOCRIT 43.7 % (39.0-51.0); MEAN CELL VOLUME 86.6 FL (80.0-100.0); MEAN CORPUSCULAR HEMOGLOBIN 28.2 PG (27.0-34.0); MEAN CORPUSCULAR HGB CONC 32.6 % (32.0-36.0); PLATELET COUNT 229 TH/MM3 (150-450); RED BLOOD COUNT 5.04 MIL/MM3 (4.50-5.90); RED CELL DISTRIBUTION WIDTH 14.2 % (11.6-17.2); REVIEW FLAG FINAL; WHITE BLOOD COUNT 11.8 TH/MM3 (4.0-11.0)
[2017-03-17] MEDS: RESP: ALBUTEROL 2.5 MG/IPRATROPIUM 0.5 MG NEB (SCH) NEB (07:42)
[2017-03-17 07:43] VITALS: O2SAT 97
[2017-03-17 07:43] LABS: ANION GAP 8 MEQ/L (5-15); AST (GOT) 51 U/L (15-37); BICARBONATE 24.8 MEQ/L (21.0-32.0); BLOOD UREA NITROGEN 13 MG/DL (7-18); CHLORIDE 105 MEQ/L (98-107); GLOMERULAR FILTRATION RATE 98 ML/MIN (>89); SODIUM (NA) 138 MEQ/L (136-145)
[2017-03-17 07:46] LABS: ALKALINE PHOSPHATASE 215 U/L (45-117); ALT (GPT) 70 U/L (12-78); TOTAL BILIRUBIN ADULT 0.5 MG/DL (0.2-1.0)
[2017-03-17] MEDS: DOCUSATE SODIUM 50 MG/SENNA 8.6 MG TAB PO SCH (07:55)
[2017-03-17] MEDS: SODIUM CHLORIDE 0.9% FLUSH 10 ML FLUSH IV FLUSH SCH (07:55)
[2017-03-17] MEDS: MORPHINE SULFATE 60 MG CONTROLLED RELEASE TAB PO SCH (07:55)
[2017-03-17] MEDS: guaiFENesin E.R. 600 MG TAB PO SCH (07:55)
[2017-03-17] MEDS: PANTOPRAZOLE SOD 20 MG DELAYED RELEASE TAB PO SCH (07:55)
[2017-03-17] MEDS: SODIUM CHLOR 0.9% 1000 ML INJ 1,000 ML IV SCH (07:56)
[2017-03-17 08:00] VITALS: BP 136/96; PULSE 77; RESP 19; TEMP 96.1; O2SAT 94
--- NOTE | 2017-03-17 08:11 | HHI.PR ---
Subjective Remarks This is a 47-year-old male with a PMH of Bipolar Disorder/Schizophrenia, HTN, Chronic Back Pain and Tobacco Abuse who presented to the ER with complaints of RUQ pain x2 days w/ associated nausea, vomiting and subjective fever. Denies diarrhea or sick contacts. Gallbladder US with thick-walled gallbladder containing stones and pericholecystic fluid with positive sonographic Lacey sign consistent with acute cholecystitis. information management specialist following for surgical intervention Next week. 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 03/16: Stable in his bedroom, no nausea, vomit or diarrhea, states his pain is now radiated to his Right flank and right lower quadrant 03/17: seen in his bedroom, stable no complaint, want to go home, at this time walking in the aisle, not yet gave bowel movements no nausea, vomit or diarrhea. Objective Vital Signs Date Time Temp Pulse Resp B/P Pulse Ox O2 Delivery O2 Flow Rate FiO2 03/17/17 07:43 97 Nasal Cannula 3.00 03/17/17 04:00 98.0 80 19 134/85 95 03/17/17 00:08 97.8 76 20 113/53 94 03/16/17 20:00 97.7 91 18 119/68 95 03/16/17 19:27 97 Nasal Cannula 3.00 03/16/17 17:00 96.7 85 20 134/74 95 03/16/17 16:45 78 18 146/60 97 Nasal Cannula 2 03/16/17 16:32 81 19 140/60 94 Nasal Cannula 2 03/16/17 16:15 98.8 89 17 143/64 94 Nasal Cannula 3 03/16/17 16:00 85 20 143/66 94 Nasal Cannula 3 03/16/17 15:45 88 21 121/58 95 Nasal Cannula 3 03/16/17 15:30 92 19 134/72 94 Nasal Cannula 3 03/16/17 15:27 99.7 97 16 132/72 93 Simple Mask 6 I/O 03/16/17 03/16/17 03/16/17 03/17/17 03/17/17 03/17/17 07:00 15:00 23:00 07:00 15:00 23:00 Intake Total 990 ml 0 ml 1536 ml 1060 ml Output Total 0 ml 110 ml 50 ml Balance 990 ml 0 ml 1426 ml 1010 ml Intake Oral 240 ml 0 ml 240 ml 360 ml IV Total 750 ml 196 ml 700 ml Other 1100 ml Output Urine Total 0 ml Drainage Total 80 ml 50 ml Estimated Blood Loss 30 ml # Voids 2 1 2 # Bowel Movements 0 0 0 0 Result Diagram: 03/17/17 0617 03/17/17 0617 Imaging Last Impressions Gall Bladder Ultrasound 03/14/17 0000 Signed Impressions: Service Date/Time: Tuesday, March 14, 2017 20:52 - CONCLUSION: 1. Thick-walled gallbladder containing stones with pericholecystic fluid and positive sonographic Lacey's sign consistent with probable acute cholecystitis. Clinical correlation is recommended. 2. Hepatomegaly. 3. Poor visualization of the pancreas due to shadowing bowel gas. Jose David Velasquez MD Procedures Laparoscopic Cholecystectomy 03/16/17 Other Results Laboratory Tests Test 03/14/17 03/14/17 03/15/17 03/17/17 20:50 21:51 04:38 06:17 Differential Total Cells 100 Counted Neutrophils % (Manual) 80 % Band Neutrophils % 5 % Lymphocytes % 12 % Monocytes % 3 % Neutrophils # (Manual) 14.8 TH/MM3 Platelet Estimate NORMAL Platelet Morphology Comment NORMAL Red Cell Morphology Comment NORMAL Lipase 101 U/L Lactic Acid Level 1.1 mmol/L Neutrophils (%) (Auto) 68.4 % Lymphocytes (%) (Auto) 20.9 % Monocytes (%) (Auto) 8.4 % Eosinophils (%) (Auto) 1.8 % Basophils (%) (Auto) 0.5 % Neutrophils # (Auto) 8.7 TH/MM3 Lymphocytes # (Auto) 2.6 TH/MM3 Monocytes # (Auto) 1.1 TH/MM3 Eosinophils # (Auto) 0.2 TH/MM3 Basophils # (Auto) 0.1 TH/MM3 CBC Comment DIFF FINAL Differential Comment Triglycerides Level 149 MG/DL Cholesterol Level 164 MG/DL LDL Cholesterol 97 MG/DL HDL Cholesterol 37.4 MG/DL Cholesterol/HDL Ratio 4.38 RATIO Free Thyroxine 1.08 NG/DL Thyroid Stimulating Hormone 1.380 uIU/ML 3rd Gen White Blood Count 11.8 TH/MM3 Red Blood Count 5.04 MIL/MM3 Hemoglobin 14.2 GM/DL Hematocrit 43.7 % Mean Corpuscular Volume 86.6 FL Mean Corpuscular Hemoglobin 28.2 PG Mean Corpuscular Hemoglobin 32.6 % Concent Red Cell Distribution Width 14.2 % Platelet Count 229 TH/MM3 Mean Platelet Volume 7.6 FL Sodium Level 138 MEQ/L Potassium Level 4.0 MEQ/L Chloride Level 105 MEQ/L Carbon Dioxide Level 24.8 MEQ/L Anion Gap 8 MEQ/L Blood Urea Nitrogen 13 MG/DL Creatinine 0.84 MG/DL Estimat Glomerular Filtration 98 ML/MIN Rate Random Glucose 101 MG/DL Calcium Level 8.7 MG/DL Total Bilirubin 0.5 MG/DL Aspartate Amino Transf 51 U/L (AST/SGOT) Alanine Aminotransferase 70 U/L (ALT/SGPT) Alkaline Phosphatase 215 U/L Total Protein 7.5 GM/DL Albumin 3.0 GM/DL Objective Remarks GENERAL: Obesity, No acute distress. HEENT: PERRLA, EOMI. No scleral icterus or conjunctival pallor. No lid lag or facial droop. CARDIOVASCULAR: Regular rate and rhythm. No obvious murmurs to auscultation. No chest tenderness to palpation. RESPIRATORY: No obvious rhonchi or wheezing. Clear to auscultation. Breath sounds equal bilaterally. GASTROINTESTINAL: Abdomen soft, clean surgical wounds. MUSCULOSKELETAL: Extremities without clubbing, cyanosis, or edema. No obvious deformities. NEUROLOGICAL: Awake, alert and oriented x4. No focal neurologic deficits. Moving both upper and lower extremities spontaneously. Medications and IVs Current Medications Medications (Trade) Dose Ordered Sig/Alex Route Start Time Stop Time Status Last Admin Cefazolin Sodium 1000 mg/Sodium Chloride 100 ml @ 200 mls/hr Q8H IV 03/15/17 00:00 03/17/17 07:55 Metronidazole 100 ml @ 100 mls/hr Q8H IV 03/14/17 22:30 03/17/17 05:24 (NS 1000 ml Inj) 1,000 ml @ 100 mls/hr Q10H IV 03/14/17 22:26 03/17/17 07:56 (NS Flush) 2 ml UNSCH PRN IV FLUSH 03/14/17 22:30 (NS Flush) 2 ml BID IV FLUSH 03/15/17 09:00 03/16/17 08:27 (Zofran Inj) 4 mg Q6H PRN IVP 6/24/17 22:30 03/15/17 00:17 (Tylenol) 650 mg Q6H PRN PO 03/14/17 22:30 (Brionna-Colace) 1 tab BID PO 03/15/17 09:00 03/17/17 07:55 (Milk Of Magnesia Liq) 30 ml Q12H PRN PO 03/14/17 22:30 (Senokot) 17.2 mg Q12H PRN PO 03/14/17 22:30 (Dulcolax Supp) 10 mg DAILY PRN RECTAL 03/14/17 22:30 (Lactulose Liq) 30 ml DAILY PRN PO 03/14/17 22:30 (Neurontin) 600 mg Q6HR PO 03/15/17 00:00 03/17/17 05:23 (Oramorph Sr) 60 mg BID PO 03/15/17 09:00 03/17/17 07:55 Pantoprazole Sodium 20 mg 20 mg DAILY PO 03/15/17 09:00 03/17/17 07:55 (Lr 1000 ml Inj) 1,000 ml @ 30 mls/hr Q24H PRN IV 03/15/17 06:15 03/18/17 06:14 (Mucinex Er) 600 mg BID PO 03/15/17 09:00 03/17/17 07:55 (SEROquel) 200 mg HS PO 03/15/17 21:00 03/16/17 21:12 Miscellaneous Information ALL NURSING DEPARTME... UNSCH PRN .XX 03/16/17 16:00 03/17/17 15:59 (Morphine Inj) 4 mg Q3H PRN IV 03/16/17 16:30 03/17/17 06:28 A/P Assessment and Plan 1. Acute Cholecystitis: acute onset of RUQ pain x2 days, Gallbladder US consistent w/ acute cholecystitis, images reviewed by me. Dr. Glez consulted by ER physician, plan is for surgical intervention. IVF, diet as tolerated, NPO prior to surgery, analgesics/antiemetics as needed. S/p Zosyn in ER, continue w/ IV Abx. Scheduled procedure Laparoscopic Cholecystectomy today. Blood cultures negative, Leukocytosis trending down to 11.5 2. Chronic Back Pain: On Morphine ER 60mg bid for h/o chronic back pain, takes medications intermittently, will resume home medications. 3. HTN: controlled. 4. Schizophrenia: Stable. No acute psychosis, continue Home medicines 5. Obesity strongly recommended diet and exercise 6. Tobacco dependence on Bronchodilator, Mucolytic and incentive spirometry, strongly recommended to stop smoking. Stable for discharge once start to tolerate diet. and cleared by General Surgery DVT Prophylaxis: SCD/Teds. for surgery later today. Discharge Planning Once cleared by Surgical Team Blue Quijano MD Mar 17, 2017 08:11
--- NOTE | 2017-03-17 10:23 | PD.CAR.PN ---
CVT Progress Note Subjective/Hospital Course: Patient with abdominal pain, nausea. Diagnosed with acute cholecystitis and cholelithiasis. Patient will be scheduled for laparoscopic cholecystaectomy at this admission. Patient is schizophrenic with repeated episodes of suicidal ideation and repeated admissions to [facility] for the same. I will be happy to treat patient for his surgical issues. Full consult dictated. Thanks J 03/15/17 Abdomen soft active bowel sounds very tender in right upper quadrant with positive Lacey sign in localized rebound and guarding Acute cholecystitis with cholelithiasis For surgery Thursday03/17/17 Status post laparoscopic cholecystectomy Incisions are clean and dry Abdomen soft with active bowel sounds Patient is doing well PENELOPE drain minimal DC drain DC patient today Objective: Vital Signs Date Time Temp Pulse Resp B/P Pulse Ox O2 Delivery O2 Flow Rate FiO2 03/17/17 08:00 96.1 77 19 136/96 94 03/17/17 07:43 97 Nasal Cannula 3.00 03/17/17 04:00 98.0 80 19 134/85 95 03/17/17 00:08 97.8 76 20 113/53 94 03/16/17 20:00 97.7 91 18 119/68 95 03/16/17 19:27 97 Nasal Cannula 3.00 03/16/17 17:00 96.7 85 20 134/74 95 03/16/17 16:45 78 18 146/60 97 Nasal Cannula 2 03/16/17 16:32 81 19 140/60 94 Nasal Cannula 2 03/16/17 16:15 98.8 89 17 143/64 94 Nasal Cannula 3 03/16/17 16:00 85 20 143/66 94 Nasal Cannula 3 03/16/17 15:45 88 21 121/58 95 Nasal Cannula 3 03/16/17 15:30 92 19 134/72 94 Nasal Cannula 3 03/16/17 15:27 99.7 97 16 132/72 93 Simple Mask 6 Labs: Laboratory Tests Test 03/17/17 06:17 White Blood Count 11.8 TH/MM3 (4.0-11.0) Red Blood Count 5.04 MIL/MM3 (4.50-5.90) Hemoglobin 14.2 GM/DL (13.0-17.0) Hematocrit 43.7 % (39.0-51.0) Mean Corpuscular Volume 86.6 FL (80.0-100.0) Mean Corpuscular Hemoglobin 28.2 PG (27.0-34.0) Mean Corpuscular Hemoglobin 32.6 % Concent (32.0-36.0) Red Cell Distribution Width 14.2 % (11.6-17.2) Platelet Count 229 TH/MM3 (150-450) Mean Platelet Volume 7.6 FL (7.0-11.0) Sodium Level 138 MEQ/L (136-145) Potassium Level 4.0 MEQ/L (3.5-5.1) Chloride Level 105 MEQ/L (98-107) Carbon Dioxide Level 24.8 MEQ/L (21.0-32.0) Anion Gap 8 MEQ/L (5-15) Blood Urea Nitrogen 13 MG/DL (7-18) Creatinine 0.84 MG/DL (0.60-1.30) Estimat Glomerular Filtration 98 ML/MIN (>89) Rate Random Glucose 101 MG/DL (74-106) Calcium Level 8.7 MG/DL (8.5-10.1) Total Bilirubin 0.5 MG/DL (0.2-1.0) Aspartate Amino Transf 51 U/L (15-37) (AST/SGOT) Alanine Aminotransferase 70 U/L (12-78) (ALT/SGPT) Alkaline Phosphatase 215 U/L (45-117) Total Protein 7.5 GM/DL (6.4-8.2) Albumin 3.0 GM/DL (3.4-5.0) Result Diagram: 03/17/1717 03/17/17 0617 Con Glez MD Mar 17, 2017 10:23
--- NOTE | 2017-03-17 11:20 | HHI.DS ---
Discharge Summary Admission Date Mar 14, 2017 at 21:43 Discharge Date: Mar 17, 2017 Admitting Diagnosis acute cholecystitis (1) Acute cholecystitis ICD Code: K81.0 Diagnosis: Principal (2) Chronic back pain ICD Code: M54.9 Diagnosis: Secondary (3) Schizophrenia ICD Code: F20.9 Diagnosis: Secondary (4) HTN (hypertension) ICD Code: I10 Diagnosis: Secondary (5) Tobacco abuse ICD Code: Z72.0 Diagnosis: Principal Procedures Laparoscopic cholecystectomy Brief History - From Admission This is a 47-year-old male with a PMH of Bipolar Disorder/Schizophrenia, HTN, Chronic Back Pain and Tobacco Abuse who presented to the ER with complaints of RUQ pain x2 days w/ associated nausea, vomiting and subjective fever. Denies diarrhea or sick contacts. No h/o similar symptoms in the past. On arrival, BP 173/106, HR 110, O2 sat 97% on RA, Temp 99.3. WBC 17.4. Chemistry unremarkable except for GFR 77. Gallbladder US with thick-walled gallbladder containing stones and pericholecystic fluid with positive sonographic Lacey sign consistent with acute cholecystitis. Dr. Glez consulted by ER physician, plan is for surgical intervention. S/p Zosyn in ER. CBC/BMP: 03/17/17 0617 03/17/17 0617 Significant Findings Laboratory Tests Test 03/14/17 03/15/17 03/17/17 20:50 04:38 06:17 White Blood Count 17.4 TH/MM3 12.7 TH/MM3 11.8 TH/MM3 (4.0-11.0) (4.0-11.0) (4.0-11.0) Neutrophils (%) (Auto) 80.4 % (16.0-70.0) Neutrophils # (Auto) 14.0 TH/MM3 8.7 TH/MM3 (1.8-7.7) (1.8-7.7) Monocytes # (Auto) 1.1 TH/MM3 1.1 TH/MM3 (0-0.9) (0-0.9) Neutrophils % (Manual) 80 % (16-70) Neutrophils # (Manual) 14.8 TH/MM3 (1.8-7.7) Estimat Glomerular Filtration 77 ML/MIN (>89) Rate Monocytes (%) (Auto) 8.4 % (0.0-8.0) Albumin 3.0 GM/DL 3.0 GM/DL (3.4-5.0) (3.4-5.0) HDL Cholesterol 37.4 MG/DL (40.0-60.0) Aspartate Amino Transf 51 U/L (15-37) (AST/SGOT) Alkaline Phosphatase 215 U/L (45-117) Imaging Last Impressions Gall Bladder Ultrasound 03/14/17 0000 Signed Impressions: Service Date/Time: Thursday, March 14, 2017 20:52 - CONCLUSION: 1. Thick-walled gallbladder containing stones with pericholecystic fluid and positive sonographic Lacey's sign consistent with probable acute cholecystitis. Clinical correlation is recommended. 2. Hepatomegaly. 3. Poor visualization of the pancreas due to shadowing bowel gas. Jose David Velasquez MD PE at Discharge GENERAL: Obesity, No acute distress. HEENT: PERRLA, EOMI. No scleral icterus or conjunctival pallor. No lid lag or facial droop. CARDIOVASCULAR: Regular rate and rhythm. No obvious murmurs to auscultation. No chest tenderness to palpation. RESPIRATORY: No obvious rhonchi or wheezing. Clear to auscultation. Breath sounds equal bilaterally. GASTROINTESTINAL: Abdomen soft, clean surgical wounds. MUSCULOSKELETAL: Extremities without clubbing, cyanosis, or edema. No obvious deformities. NEUROLOGICAL: Awake, alert and oriented x4. No focal neurologic deficits. Moving both upper and lower extremities spontaneously. Hospital Course This is a 47-year-old male with a PMH of Bipolar Disorder/Schizophrenia, HTN, Chronic Back Pain and Tobacco Abuse who presented to the ER with complaints of RUQ pain x2 days w/ associated nausea, vomiting and subjective fever. Denies diarrhea or sick contacts. Gallbladder US with thick-walled gallbladder containing stones and pericholecystic fluid with positive sonographic Lacey sign consistent with acute cholecystitis. vehicle care specialist following for surgical intervention Next week. 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 03/16: Stable in his bedroom, no nausea, vomit or diarrhea, states his pain is now radiated to his Right flank and right lower quadrant 03/17: seen in his bedroom, stable no complaint, want to go home, at this time walking in the aisle, not yet gave bowel movements no nausea, vomit or diarrhea. after seen that the patient tolerated food, he was discharged by General Surgeon. ready for discharge home, pain medicine script given by vehicle care specialist. Assessment and Plan 1. Acute Cholecystitis: acute onset of RUQ pain x2 days, Gallbladder US consistent w/ acute cholecystitis, images reviewed by me. Dr. Glez consulted by ER physician, plan is for surgical intervention. IVF, diet as tolerated, NPO prior to surgery, analgesics/antiemetics as needed. S/p Zosyn in ER, continue w/ IV Abx. Scheduled procedure Laparoscopic Cholecystectomy today. Blood cultures negative, Leukocytosis trending down to 11.5 2. Chronic Back Pain: On Morphine ER 60mg bid for h/o chronic back pain, takes medications intermittently, will resume home medications. 3. HTN: controlled. 4. Schizophrenia: Stable. No acute psychosis, continue Home medicines 5. Obesity strongly recommended diet and exercise 6. Tobacco dependence on Bronchodilator, Mucolytic and incentive spirometry, strongly recommended to stop smoking. Stable for discharge once start to tolerate diet. already cleared for discharge by General vehicle care specialist. DVT Prophylaxis: SCD/Teds. for surgery later today. Discharge Planning Discharge Home now. Pt Condition on Discharge: Good Discharge Disposition: Discharge Home Discharge Time: <= 30 minutes Discharge Instructions DIET: Follow Instructions for: Heart Healthy Diet Activities you can perform: Regular-No Restrictions Other Activity Instructions: NO LIFTING OVER 40LBS X 6 WEEKS - REALLY IMPORTANT TO ADHERE! Blue Quijano MD Mar 17, 2017 11:20
[2017-03-17 12:00] VITALS: BP 125/76; PULSE 80; RESP 19; TEMP 96.4; O2SAT 94
[2017-03-17] MEDS ORDERED: KETOROLAC TROMETHAMINE 60 MG/2 ML (IM) VIAL IM ONE (12:00)
--- NOTE | 2017-03-18 22:25 | MP ---
cc: KASANDRA KIDD MD DATE OF SURGERY 03/16/2017 PREOPERATIVE DIAGNOSIS Acute calculus cholecystitis, cholelithiasis. POSTOPERATIVE DIAGNOSIS Acute calculus cholecystitis, cholelithiasis. PROCEDURE Laparoscopic cholecystectomy. SURGEON Dr. Kidd. ANESTHESIA General. ESTIMATED BLOOD LOSS 100 mL PROCEDURE DETAILS The patient prepped and draped in usual fashion. Supraumbilical incision made, deepened down under direct vision, Teena cannula is inserted and balloon insufflated. Abdomen is insufflated with CO2. The patient positioned in reverse Trendelenburg with a tilt. 0 degree camera is inserted, abdomen visualized in quadrants. No other abnormalities are found except somewhat fatty omentum. The subxiphoid and two right upper quadrant ports were placed and then gallbladder is grasped with alligator clamps, elevated. Omentum is stuck to the gallbladder. This dissected free. Gallbladder is whitish in color, very distended, filled with bile therefore, it decompressed with trocar needle. Very carefully the cystic duct and cystic artery are now dissected and once visualized, triple ligated and divided. Gallbladder is taken off the liver bed with spatula cautery instrument and delivered through the subumbilical incision using EndoCatch bag. Some of the stones spilled from the gallbladder which is diseased on the way out and then most of the stones were then retrieved with suction system. Gallbladder bed irrigated with copious amounts of saline. Meticulous hemostasis obtained. A 10 flat PENELOPE placed in the subhepatic space and then instrument port withdrawn. Incisions were closed with 0 Vicryl and 4-0 Monocryl. The patient tolerated the procedure well. Kasandra Kidd SJ/KK /4:07 PM /10:17 PM
== END 2017-03-17 13:35 | disposition home or self-care (01) | DRG 419 ==
LOC: NEPD 19:36 → NEDA 21:43 → N07B 23:11
PROVIDERS: ADMIT Internal Medicine; ATTEND Internal Medicine
PROC: 0FT44ZZ Resection of Gallbladder, Percutaneous Endoscopic Approach (ICD-10-PCS; principal; 2017-03-16 12:53)
DX: K80.00 Calculus of gallbladder with acute cholecystitis without obstruction (principal); I10 Essential (primary) hypertension; F31.9 Bipolar disorder, unspecified; F17.210 Nicotine dependence, cigarettes, uncomplicated; G89.29 Other chronic pain; F20.9 Schizophrenia, unspecified; E66.9 Obesity, unspecified; K21.9 Gastro-esophageal reflux disease without esophagitis; M54.9 Dorsalgia, unspecified; Z68.38 Body mass index [BMI] 38.0-38.9, adult; Z79.891 Long term (current) use of opiate analgesic
CPT/HCPCS: 76705; 80053; 80061; 82948; 83605; 83690; 84439; 84443; 85007; 85025; 85027; 87040; 88304; 93005; 94150; 94640; 94664; 96361; 96374; 96375; J0690; J1100; J1885; J2060; J2250; J2270; J2370; J2405; J2543; J2710; J3010; J7030; J7120

== ENCOUNTER 2017-03-26 16:32 | Emergency (ER) | payer MEDICARE ==
[~2017-03-26] VITALS: Ht 188 cm; Wt 136.5 kg
[~2017-03-26 16:32] MED LIST changes: -HYDR8TAB PO; -LITH450T PO; -REST30CA PO
[2017-03-26 16:34] VITALS: BP 140/80; PULSE 104; RESP 20; TEMP 98.7; O2SAT 97
--- NOTE | 2017-03-26 17:28 | PD ---
HPI Chief Complaint: Medical Clearance Time Seen by Provider: 17:25 Travel History International Travel<30 days: No Contact w/Intl Traveler<30days: No Traveled to known affect area: No History of Present Illness HPI 47-year-old male presents to the emergency department requesting work release to return back to work after gallbladder surgery about 10 days ago. He has no medical complaints. 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 He denies fever, chills, nausea, vomiting , abdominal pain, chest pain, shortness of breath. He does not remember the name of the surgeon. He does have a follow-up appointment with his surgeon in about 3 weeks. No known allergies. Has no other medical complaints. No other modifying factors or associated signs and symptoms. History Past Medical Histgory Hx Cancer: No Social History Alcohol Use: No Tobacco Use: Yes Allergies-Medications (Allergen,Severity, Reaction): Coded Allergies: No Known Allergies (Unverified , 03/26/17) Reported Meds & Prescriptions Reported Meds & Active Scripts Active Quetiapine (Quetiapine Fumarate) 400 Mg Tab 400 Mg PO HS Reported Quetiapine (Quetiapine Fumarate) 400 Mg Tab 400 Mg PO HS Morphine ER (Morphine Sulfate) 60 Mg Tab 60 Mg PO BID Pantoprazole (Pantoprazole Sodium) 20 Mg Tab 20 Mg PO DAILY Gabapentin 600 Mg Tab 600 Mg PO Q6HR Review of Systems Except as stated in HPI: all other systems reviewed are Neg Physical Exam Narrative GENERAL: Well-nourished, well-developed male patient, in no acute distress; afebrile, nontoxic-appearing SKIN: Warm and dry. HEAD: Atraumatic. Normocephalic. EYES: Pupils equal and round. No scleral icterus. No injection or drainage. ENT: Mucosa pink and moist. Airway patent. NECK: Trachea midline. CARDIOVASCULAR: Regular rate. RESPIRATORY: No accessory muscle use. GASTROINTESTINAL: Obese. MUSCULOSKELETAL: No obvious deformities. No clubbing. No cyanosis. No edema. NEUROLOGICAL: Awake and alert. Oriented 3. No obvious cranial nerve deficits. Motor grossly within normal limits. Normal speech. PSYCHIATRIC: Appropriate mood and affect; insight and judgment normal. Data Data Last Documented VS Vital Signs Date Time Temp Pulse Resp B/P Pulse Ox O2 Delivery O2 Flow Rate FiO2 03/26/17 16:34 98.7 104 20 140/80 97 Room Air [facility] Medical Screen Exam Complete: Yes Emergency Medical Condition: No Differential Diagnosis Work release, medical clearance, malingering Narrative Course 47-year-old male requesting work release note after having his gallbladder removed about 10 days ago. Instructed patient to follow up with surgeon for work release. He has no other medical complaints. Vital signs are stable and the patient is stable for outpatient follow-up and treatment. The patient has no urgent or emergent medical complaints. There is no emergent or urgent medical need at this time. I instructed the patient to follow up with their primary care provider. A medical screening exam was performed: At the time of evaluation the presenting medical condition was determined not to be of an emergent nature. The patient was given the option of receiving additional care, but declined. Patient was given options for additional community resources from which to obtain care. The Patient Has Been advised to seek medical attention for their presenting complaint. The patient has been advised to return to the ER at any time if an emergent condition develops. Primary Impression: Encounter for medical screening examination Condition: Stable Autumn Mayers [facility] Mar 26, 2017 17:28
== END 2017-03-26 17:38 | disposition left against medical advice (07) ==
LOC: NEPK 16:32
DX: Z02.89 Encounter for other administrative examinations (principal)
CPT/HCPCS: 99281